=== PATIENT | male | born 1960 | race Caucasian/White ===

== ENCOUNTER 2024-08-03 18:01 | Emergency (ER) | payer MEDICAID, SELFPAY ==
[2024-08-03] VITALS (9 sets, daily range): BP systolic 117–146; BP diastolic 65–87; PULSE 40–58; RESP 12–16; TEMP 36.4–36.7; O2SAT 96–99; BMI 28.6
--- NOTE | 2024-08-03 | ECG_ITS ---
Test Reason : AMS Blood Pressure : */* mmHG Vent. Rate : 52 BPM Atrial Rate : 52 BPM P-R Int : 152 ms QRS Dur : 150 ms QT Int : 466 ms P-R-T Axes : 12 -43 1 degrees QTcB Int : 433 ms Sinus bradycardia Left axis deviation Right bundle branch block Minimal voltage criteria for LVH, may be normal variant ( R in aVL ) Abnormal ECG When compared with ECG of 25-Apr-2019 18:16, Vent. rate has decreased by 26 bpm Right bundle branch block is now Present Referred By: Generic ED Physician Electronically Signed By: CONSUELO LAURENT
--- NOTE | ~2024-08-03 | CT_ITS ---
CLINICAL HISTORY: mental status changes CT head without contrast Comparison: CT/REG/NY/SR - BRAIN WO IV CONTRAST [id number] - 04/25/19 18:36 EST Findings: There are bilateral subdural fluid collections overlying the cerebral convexities, measuring 9 mm maximum thickness on the left and 4 mm maximum thickness on the right. Both collections are of intermediate density, oglqi-mxwqbya-gjkw-left of CSF but less than that of the intravascular blood pool. There are few small areas of slightly increased density within the left cerebral convexity subdural collection anteriorly which could represent recent rebleeding into subdural hematomas which are chronic or subacute. There is minimal uqkj-mp-tlhqy midline shift measuring 4 mm along with mild effacement of the left lateral ventricle and generalized cerebral hemispheric sulcal effacement. No significant uncal herniation or tonsillar herniation. No periventricular edema or findings of ventricular entrapment. No significant orbital abnormality. Paranasal sinuses and mastoid air cells clear. IMPRESSION: 1. Bilateral cerebral convexity subdural hematomas which appear to be acute on chronic. Esjy-sa-vecploro associated mass effect. Neurosurgical consultation recommended. This document has been electronically signed by: Dariusz Bruce MD on 08/03/2024 19:26:05
[2024-08-03 18:42] LABS: MANUAL DIFF FLAG NO
[2024-08-03 18:44] LABS: Basophils Percent Auto 0.1 % (0-2); Eosinophils Percent Auto 0.4 % (0-4); Hematocrit 37.6 % (42.0-52.0); Hemoglobin 12.8 g/dl (14.0-18.0); Imm Gran Abs Auto 0.03 X10*3/uL (0.00-0.03); Imm Gran Pct Auto 0.3 % (0.0-0.4); Lymphocytes Absolute Auto 1.1 X10*3/uL (1.2-4.9); Lymphocytes Percent Auto 11.5 % (20-40); Mean Corpuscular Volume 88.1 fL (80.0-98.0); Mean Platelet Volume 9.3 fL (9.4-12.4); Monocytes Absolute Auto 0.3 X10*3/uL (0.1-1.2); Monocytes Percent Auto 3.5 % (2-11); Neutrophils Absolute Auto 7.7 x10*3/uL (2.0-8.3); Neutrophils Percent Auto 84.2 % (45-73); Platelet Count 277 X10*3/uL (160-400); Red Blood Count 4.27 X10*6/uL (4.60-5.80); Red Cell Distribution Width 12.5 % (11.0-16.0); White Blood Count 9.1 X10*3/uL (4.8-10.8)
--- NOTE | 2024-08-03 18:44 | ED_ITS ---
HPI - General Adult General Chief complaint: General Medical Stated complaint: AMS Time Seen by Provider: 08/03/24 18:17 Source: patient and EMS Mode of arrival: EMS Limitations: no limitations History of Present Illness ED Provider: DR. Jose HPI narrative: 64-year-old male brought in by ambulance for further evaluation of neighbor's concern of the patient is acting weird. Patient stated that he [facility] patient was feeling slightly depressed and he sniffed 1 bag of heroin got it from his friend, patient, patient fell yesterday do not remember details of the fall, possible head injury, no fever, no chills, complaining of slight headache otherwise he feels fine. Patient received Narcan by EMS and the patient became more awake. Related Data Allergies Allergy/AdvReac Type Severity Reaction Status Date / Time No Known Allergies Allergy Verified 08/03/24 18:15 [No Known Allergies*] Review of Systems 2 Review of Systems: All other systems are reviewed and are negative Constitutional: Reports as per HPI and Reports no additional constitutional complaints Eyes: Reports as per HPI and Reports no additional eye complaints Reports system reviewed and no additional complaints, except as documented Cardiovascular: Reports as per HPI and Reports no additional cardiovascular complaints Respiratory: Reports as per HPI and Reports no additional respiratory complaints Gastrointestinal: Reports as per HPI and Reports no additional gastrointestinal complaints Genitourinary: Reports no additional female genitourinary complaints Musculoskeletal: Reports no additional musculoskeletal complaints Skin/Breast: Reports system reviewed and no additional complaints, except as docu Psychiatric: Reports no additional psychiatric complaints Endocrine: Reports no additional endocrine complaints Hematologic/Lymphatic: Reports no additional hematologic/lymphatic complaints Allergic/Immunologic: Reports no additional allergic/immunologic complaints Reports system reviewed and no additional complaints, except as documented and Reports Abnormal speech present [facility] Social History Social History Advance Directives: No Advance Directives Information Provided: No Physical Exam ED Vital Signs: Vital Signs - 24 hr 08/03/24 18:14 08/03/24 18:29 08/03/24 18:44 Temperature 98.0 F Pulse Rate 47 L 51 52 Respiratory Rate 16 14 12 Blood Pressure 146/83 H 117/65 120/80 Pulse Oximetry 96 97 97 Oxygen Delivery Method Room Air Room Air Room Air 08/03/24 19:42 Temperature Pulse Rate 46 L Respiratory Rate 13 Blood Pressure 130/85 Pulse Oximetry 98 Oxygen Delivery Method Room Air BMI result Body Mass Index 28.6 Vital signs have been reviewed and appear to be correct. Blood pressure elevated. Heart rate normal. Respiratory rate normal. Temperature normal. Oxygen saturation normal. Appearance: Sluggish, lethargic, Oriented X3 No acute distress. Head: Normal external exam. Normocephalic. Atraumatic. No Elkins signs noted. No raccoon eyes noted Eyes: PERRLA. EOMI. Conjunctiva and sclera normal. Eyelids normal. ENT: TM's Normal. Pharynx normal. Uvula midline. Moist mucous membranes. No trismus noted. No drooling noted. No muffled voice noted. Neck: Normal inspection. Neck supple. FROM. No adenopathy. Thyroid Normal. No meningeal signs. No neck mass noted. CVS: Normal heart rate and rhythm. Heart sound normal. No murmurs noted. Pulses normal throughout. Respiratory: No respiratory distress. Painless inspiration. Breath sounds normal. No wheezes/rales/rhonchi noted. Chest nontender. No accessory muscle usage noted or decreased air movement noted. Abdomen: Soft and nontender. Bowel sounds normal in all 4 quadrants. No distention noted. No organomegaly noted. No visible injury noted. Back: No CVA tenderness. Full range of motion noted. Skin: Skin warm and dry. Normal skin color. Normal skin turgor. No rashes/lesions/lacerations noted. Extremities: No lower extremity edema. Extremities exhibit normal range of motion. Extremities nontender. Neuro: Mental status: Sluggish.AAOx3, Able to protect airway with strong gag reflex. Cranial nerves: Pupils are equal, round and reactive to light, EOMI, visual morales are fall, face is symmetric, facial sensations are normal. Motor examination normal muscle tone, strength to 4 extremities. DTR are +2, planter's are flexor. Sensory exam; normal coordination, no ataxia, gait stable. Cerebellar exam: Nlnzeh-wl-vpqb and ooyc-ce-rkoz is normal. Extrapyramidal system: No tremors, no rigidity with normal facial expressions. Pronator drift not present. Course Reevaluation(s) Reevaluation #1: Change mental status after using heroin, CT head reveals acute on chronic bilateral subdural hematoma with minimal left to right shift and minimal effacement. Patient is lethargic but easily arousable follow commands. The case discussed with Dr. Montana at [facility] for trauma transfer. Patient was accepted. Ambulance ALS expected to transport the patient in 30 minutes, quick neuro exam pupil is 3 mm reactive bilaterally, patient is still lethargic but easily arousable follows simple commands, AA O x3 (time, place, person). Positive gag reflex. And able to protect airway. Signed out to Dr. Jackson. Time: 21:00 Medical Decision Making Differential Diagnosis Differential Diagnoses: The differential diagnosis associated with the presentation includes (Intracranial bleed, substance use, electrolyte derangement, severe anemia.) Admission/Observation Consideration of admission/observation: Escalation of care including admission/observation considered Consult Healthcare Provider Management of the patient was discussed with: Historiography Professor (Dr. Montana at [facility]) Lab Data MDM Lab Attestation statement: I reviewed the patient's lab results. 08/03/24 18:38 08/03/24 18:38 Labs: Lab Results 08/03/24 Range/Units 18:38 WBC 9.1 (4.8-10.8) X10*3/uL RBC 4.27 L (4.60-5.80) X10*6/uL Hgb 12.8 L (14.0-18.0) g/dl Hct 37.6 L (42.0-52.0) % MCV 88.1 (80.0-98.0) fL MCH 30.0 (27.0-33.0) pg MCHC 34.0 (31.0-36.0) g/dl RDW 12.5 (11.0-16.0) % Plt Count 277 (160-400) X10*3/uL MPV 9.3 L (9.4-12.4) fL Immature Gran % (Auto) 0.3 (0.0-0.4) % Neut % (Auto) 84.2 H (45-73) % Lymph % (Auto) 11.5 L (20-40) % [place] % (Auto) 3.5 (2-11) % Eos % (Auto) 0.4 (0-4) % Baso % (Auto) 0.1 (0-2) % Lymph # (Auto) 1.1 L (1.2-4.9) X10*3/uL [place] # (Auto) 0.3 (0.1-1.2) X10*3/uL Eos # (Auto) 0.0 (0.0-0.4) X10*3/uL Baso # (Auto) 0.0 (0.0-0.2) X10*3/uL Abs Immat Gran (auto) 0.03 (0.00-0.03) X10*3/uL Absolute Neuts (auto) 7.7 (2.0-8.3) x10*3/uL Absolute Nucleated RBC 0.000 (0.0-0.012) X10*3/uL Nucleated RBC % (auto) 0.0 (0.0-0.2) /100WBC PT 12.5 H (10.9-12.4) SEC INR 1.1 (0.9-1.1) Sodium 142 (135-145) mmol/L Potassium 4.0 (3.3-5.1) mmol/L Chloride 109 H (96-108) mmol/L Carbon Dioxide 24 (22-29) mmol/L Anion Gap 13 (12-20) BUN 22 H (9-16) mg/dL Creatinine 0.80 (0.5-1.4) mg/dL Estim Creat Clear Calc 108.6 Estimated GFR > 60 Random Glucose 128 H (60-115) mg/dL Calcium 8.9 (8.4-10.2) mg/dL Troponin I High Sens 6.4 (<3.5-35.0) ng/L Salicylates < 5.0 L (15-30) mg/dL Acetaminophen < 3 (<30) mcg/mL Ethyl Alcohol 10 mg/dL Independent Interpretation I performed an independent interpretation of an: CT Scan (Head: . Bilateral cerebral convexity subdural hematomas which appear to be acute on chronic. Wnrx-tv-kpynoaut associated mass effect. Neurosurgical consultation recommended.) Radiology Impression Discussion of test interpretation with radiology: I have reviewed the radiologist's reading. Critical Care Time Critical Care Time Critical Care Time: Yes Total Critical Care Time: 60 Attestation: The patient was critically ill with a high probability of imminent or life- threatening deterioration. I spent greater than 30 minutes of discontinuous time evaluating the patient, delivering critical care at the bedside, discussing evaluating data with consultants. Critical care time does not include time spent performing separately billable procedures or teaching. Time spent performing critical care was 60 minutes. Discharge Plan Discharge Clinical Impression: Subdural hematoma, Substance abuse Patient Disposition: [facility] Transfer Details: [facility]. Print Language: Yemeni
[2024-08-03 18:49] LABS: INTERNATIONAL NORM RATIO 1.1 (0.9-1.1); Prothrombin Time 12.5 SEC (10.9-12.4)
[2024-08-03 18:59] LABS: Anion Gap 13 (12-20); Blood Urea Nitrogen 22 mg/dL (9-16); Calcium 8.9 mg/dL (8.4-10.2); Carbon Dioxide 24 mmol/L (22-29); Chloride 109 mmol/L (96-108); Creatinine Clr Calc Pharmacy 108.6; Estimated Glomerular Filt Rate > 60; Ethanol 10 mg/dL; Glucose Random 128 mg/dL (60-115); Sodium 142 mmol/L (135-145)
[2024-08-03 19:03] LABS: Acetaminophen LAB < 3 mcg/mL (<30); Salicylate < 5.0 mg/dL (15-30)
[2024-08-03 19:08] LABS: Troponin-I High Sensitivity 6.4 ng/L (<3.5-35.0)
--- NOTE | 2024-08-03 19:47 | PC.NURSE ---
Head CT impression: Bilateral cerebral convexity subdural hematomas which appear to be acute on chronic. Xrtc-oo-jpbyysfy associated mass effect. Neurosurgical consultation recommended. Plan to transfer to [facility] per . Awaiting EMS for transfer. Will give RN to RN report upon [facility]'s acceptance. Patient is sleeping at this time, arousable to verbal stimuli. Patient stated to this RN & Dr. Jose that he fell 2 days ago . 18g IV access to left AC. Labs drawn and sent earlier this shift. Was given Narcan IV by EMS prior to arrival for OD of heroin to treat my pain after recent discharge from [facility] rehab. In hospital attire.
[2024-08-03 21:18] LABS: Glucose, Whole Blood 130 mg/dL (60-115)
== END 2024-08-03 21:19 | disposition short-term general hospital (02) ==
PROVIDERS: Emergency Medicine; Emergency Provider Emergency Medicine
DX: S06.5XAA Traumatic subdural hemorrhage with loss of consciousness status unknown, initial encounter (principal); R41.82 Altered mental status, unspecified; F11.10 Opioid abuse, uncomplicated; F33.1 Major depressive disorder, recurrent, moderate; R00.1 Bradycardia, unspecified; I45.10 Unspecified right bundle-branch block; R51.9 Headache, unspecified; W19.XXXA Unspecified fall, initial encounter; Y93.9 Activity, unspecified; Y92.9 Unspecified place or not applicable; Y99.8 Other external cause status; Z51.81 Encounter for therapeutic drug level monitoring; Z79.899 Other long term (current) drug therapy
CPT/HCPCS: 36415; 70450; 80048; 80143; 80179; 80307; 82947; 84484; 85025; 85610; 93005; 99285

== ENCOUNTER → 2024-08-03 18:17 | Outpatient (BNV) | payer MEDICAID, SELFPAY | PROVIDERS: Emergency Provider Emergency Medicine; Visit Provider Internal Medicine | DX: R00.1 Bradycardia, unspecified (principal); I45.10 Unspecified right bundle-branch block; R94.31 Abnormal electrocardiogram [ECG] [EKG]; R41.82 Altered mental status, unspecified | CPT/HCPCS: 93010 ==

== ENCOUNTER → 2024-08-03 18:43 | Outpatient (BNV) | payer MEDICAID, SELFPAY | PROVIDERS: Emergency Provider Emergency Medicine; Visit Provider Radiology Diagnostic Radiology | DX: R41.82 Altered mental status, unspecified (principal); I62.00 Nontraumatic subdural hemorrhage, unspecified | CPT/HCPCS: 70450 ==

== ENCOUNTER 2024-10-28 14:08 | Emergency (ER) | payer MEDICAID, SELFPAY ==
--- NOTE | ~2024-10-28 | CT_ITS ---
EXAMINATION: CT HEAD WITHOUT CONTRAST CLINICAL INFORMATION: Altered mental status, history of subdural hematoma. COMPARISON: 08/03/2024. TECHNIQUE: Contiguous axial imaging was performed from the skull base to vertex without intravenous administration of contrast. This CT examination was performed using dose optimization techniques as appropriate, variously including the following: *Automated exposure control *Adjustment of mA and/or kV according to patient size (this includes techniques or standardized protocols for targeted exams where dose is matched to indication/reason for exam; i.e. extremities or head) *Use of iterative reconstruction technique FINDINGS: Left frontoparietal isoattenuating subdural hematoma, measuring approximately 1.2 cm in maximal thickness. There are small foci of hyperattenuation along the anterior margin suggestive of active bleeding. There is localized left hemispheric mass effect and sulcal effacement, and a resultant 4 mm of [id number] midline shift. No ventricular trapping at this time. Mild effacement of the left lateral ventricle is present. No impending uncal or transtentorial herniation. No intraparenchymal or subarachnoid hemorrhage. There is embolization material within the left middle meningeal artery territory. There is associated streak artifact. Embolic material also noted in the right pterygopalatine fossa. The globes and orbits appear normal. Extracranial soft tissues are normal. The paranasal sinuses, mastoids, and tympanic cavities are aerated normally. There is no fracture or focal bony lesion. CT/CT head/brain wo IV con IMPRESSION: 1. Subacute appearing predominantly isoattenuating subdural hematoma in the left frontoparietal convexity measuring approximately 1.2 cm in maximal thickness (when measured in coronal plane). There is resultant left hemispheric mass effect, sulcal effacement, and 4 mm of [id number] midline shift. 2. There is mild mass effect upon the left lateral ventricle without ventricular trapping. There is no impending uncal or transtentorial herniation. 3. There is no intraparenchymal or subarachnoid hemorrhage present. There is no acute territorial infarct. 4. There is embolization material within the left middle meningeal artery territory. This critical result was discussed with Stella Ramirez PA-C of the [facility] at 4:19 PM, 10/28/2024.. It was ascertained that the content and urgency of the report was understood at the time of direct communication. Electronically signed by: Gregorio Rodriguez MD 10/28/2024 04:20 PM EDT RP
[2024-10-28 14:38] VITALS: BP 106/60; BP 82/49; PULSE 110; PULSE 89; RESP 16; TEMP 36.7; O2SAT 94; O2SAT 95; BMI 30.3
[2024-10-28 14:42] VITALS: BP 82/49; PULSE 89; RESP 16; TEMP 36.7; O2SAT 94
--- NOTE | 2024-10-28 14:44 | PC.NURSE ---
Addendum entered by Stella Maguire RN 10/28/24 14:59: Pt denies SI/HI at this time. Original Note: Pt comes to ED today via EMS after being found by PD at a gas station with bizarre behavior: punching the air, walking into traffic, and verbal outbursts. Per EMS, Pt reports snorting heroin but unable to provide details of when/amount. Pt denies any ETOH or drug use to this RN at this time. Pt changed into hospital attire by Security and senior research engineer Jodie--Pt cooperative with global climate change analyst process. Pt is alert and responds to internal stimuli. Pt can be frequently be seen talking out loud and addressing a female that he believes to be there. He also repeatedly is startled and states yes, sir Pt is intermittently falls asleep but is easily aroused with verbal stimuli. Awaiting ED provider.
--- OUTSIDE RECORDS SUMMARY | 2024-10-28 15:21 | XMS_ITS | Clinical Summary ---
Author Organization [facility] [address] Address [address] [place] [address] Care Team Providers Care Concrete Mixer Name Role Phone Unavailable Primary Care Provider Unavailabl e Medications SUBOXONE 8-2 mg per sublingual film PLACE 1 FILM UNDER TONGUE THREE TIMES A DAY 12/19/2021 Active Social History Tobacco Use Types Packs/Day Years Used Date Smoking Tobacco: Never Assessed Sex and Gender Information Value Date Recorded Sex Assigned at Not on file Legal Sex Male 10:06 PM EST Gender Identity Not on file Sexual Orientation Not on file Last Filed Vital Signs Vital Sign Reading Time Taken Comments Blood Pressure 138/100 01/15/2022 3:29 PM EDT Pulse 67 01/15/2022 3:29 PM EDT Temperature 36.1 ??C (96.9 ??F) 01/15/2022 3:29 PM ED T Respiratory Rate - - Oxygen Saturation 98% 01/15/2022 3:29 PM EDT Inhaled Oxygen Concentration - - Weight 110 kg (242 lb 6.4 oz) 01/15/2022 3:29 PM EDT Height - - Body Mass Index - - Plan of Treatment Health Maintenance Due Date Last Done Comments HIV screening 1973 Hepatitis C screening 1978 Lipid disorder screening 2000 Colon cancer screening, Colonoscopy 2005 Diabetes screening 2005 Pneumococcal Vaccine (50+ ye ars) (1 of 1 - PCV) 2010 Shingles vaccine (Shingrix) (1 of 2 - Shingrix (RZV) 2 Dose Standard Series) 2010 Tetanus adult (Td q 10,TDAP once) 06/30/2020 011 Covid-19 vaccine series ( - 2023- season) 2024 Influenza vaccine 02/08/2025 RSV Immunization (1 - 1-dose 75+ series) 2035 Meningococcal Vaccine Aged Out No calderon ujlio eligible based on patient's age to complete this topic
--- NOTE | 2024-10-28 15:30 | ED_ITS ---
HPI - Altered Mental Status General Chief Complaint: ETOH/Substance Use Stated Complaint: AMS,ERRATIC BEHAVIOR BY ROAD,ADMITS TO HEROIN Time Seen by Provider: 10/28/24 15:30 Source: patient, EMS, RN notes reviewed and old records reviewed Mode of arrival: EMS Limitations: altered mental status History of Present Illness ED Provider: Smith Ramirez PA-C HPI narrative: 64 yo male with history of substance use, history of subdural hematama who presents to the ER for evaluation after he was found outside of a gas station with bizarre behavior. EMS reports he was found punching the air, walking into traffic and having verbal outbursts. Patient admitted to using intranasal heroin but was unable to report when or how much. On arrival to the ER patient is awake and alert. He does not know why he is here. He states he has lived in a hotel for the last 5 years. He endorses using heroin, denies any alcohol or other illicit substances. He denies any pain, specifically no headache, chest pain, abdominal pain, shortness of breath. He was found to be hypotensive 82/49 with no fever, no tachycardia. This was repeated multiple times and found to be persistent. Patient denies any dizziness, lightheadedness. He denies any fever or chills. He adamantly denies intravenous drug use. MD complaint: altered mental status Onset (ago): unknown Consistency of symptoms: waxing and waning Context: drug abuse Associated symptoms: denies other symptoms Related Data Allergies Allergy/AdvReac Type Severity Reaction Status Date / Time No Known Allergies Allergy Verified 10/28/24 14:41 [No Known Allergies*] Review of Systems 2 Review of Systems: Yes all other systems are reviewed and are negative [facility] Social History Social History Unable to assess alcohol history related to: Unable to respond Substance Use Type: Heroin Physical Exam ED Vital Signs: Vital Signs - 24 hr 10/28/24 14:42 10/28/24 15:45 10/28/24 15:52 Temperature 98.0 F Pulse Rate 89 70 69 Respiratory Rate 16 12 Blood Pressure 82/49 L 85/44 L 91/53 L Pulse Oximetry 94 94 Oxygen Delivery Method Room Air Room Air 10/28/24 16:22 10/28/24 18:03 Temperature 98.0 F 98.3 F Pulse Rate 64 74 Respiratory Rate 12 18 Blood Pressure 100/59 L 104/63 Pulse Oximetry 97 95 Oxygen Delivery Method Room Air Room Air BMI result Body Mass Index 30.3 Appearance: Alert. Oriented X3. No acute distress. Intermittently falling asleep Head: normocephalic, atraumatic. no scrapes or abrasions on the forehead Eyes: Pupils 2 mm, equal round and reactive to light. ENT: Pharynx normal. No tonsillar swelling or exudate. Neck: Normal inspection. Neck supple. no midline tenderness, normal ROM CVS: Normal heart rate and rhythm. Pulses normal. Respiratory: No respiratory distress. Breath sounds normal. Abdomen: Soft and nontender. +BS x4 Skin: Skin warm and dry. Normal skin color. Normal skin turgor. No rashes. Extremities: No lower extremity edema. No joint swelling. Neuro/psych: Oriented X 3. No motor deficit. No sensory deficit. Restless CN II-XII intact. Normal speech and cognition. GCS 15, poor historian Medications Administered Discontinued Medications Generic Name Dose Route Start Last Admin Trade Name Joshuaq PRN Reason Stop Dose Admin Lactated Ringer's 1,000 mls @ 999 mls/hr 10/28/24 15:45 10/28/24 17:00 Lr IV 10/28/24 16:45 Infused .Q1H1M JAIRO Infusion Lactated Ringer's 1,000 mls @ 999 mls/hr 10/28/24 17:30 10/28/24 18:03 Lr IV 10/28/24 18:30 Not Given .Q1H1M JAIRO Medical Decision Making Medical Decision Making MDM Narrative: 64 yo male with history of substance abuse, history of bilateral subdural hematomas when seen here last in July and was transferred to [facility] who presents to the ER via EMS for evaluation of bizarre behavior for using drugs, found to be hypotensive. he is a poor historian, no recollection of the bizarre behavior or events that occurred earlier today. He denies any falls or trauma. Patient hypotensive 80/40, slightly lethargic but arouses and answers questions appropriately. Vital signs are otherwise stable. IV was established he was started on IV fluids. Lab workup is showing stable normocytic anemia with hemoglobin of 11.7. Blood pressure improved to 91/[address] scan of his head was done which is showing a new subdural hematoma in the left frontoparietal area measuring 1.2 cm with a resulting 4 mm wgsx-aa-njqsv shift. Patient is a GCS of 15 and is protecting his airway, nonfocal neurologically. He is a poor historian, intermittently lethargic which may be due to his prior drug use. We discussed the results of his CT scan and he denies any recent falls or trauma. [facility] called at 16:25 to discuss with Neurosurgery/trauma. 16:40 - spoke with Dr. Hopkins from [facility]. accepted as a trauma consult. Patient updated on results and need for transfer to [facility] Differential Diagnosis Differential Diagnoses: The differential diagnosis associated with the presentation includes Hypotension and altered mental status due to drug use, acute on chronic subdural, infection and sepsis less likely with no evidence of infection on examination Admission/Observation Consideration of admission/observation: Escalation of care including admission/observation considered Consult Healthcare Provider Management of the patient was discussed with: Sfdc Developer Lab Data MDM Lab Attestation statement: I reviewed the patient's lab results. Mild anemia 10/28/24 15:47 10/28/24 15:47 Labs: Lab Results 10/28/24 10/28/24 Range/Units 15:47 16:56 WBC 8.4 (4.8-10.8) X10*3/uL RBC 3.87 L (4.60-5.80) X10*6/uL Hgb 11.7 L (14.0-18.0) g/dl Hct 34.7 L (42.0-52.0) % MCV 89.7 (80.0-98.0) fL MCH 30.2 (27.0-33.0) pg MCHC 33.7 (31.0-36.0) g/dl RDW 12.4 (11.0-16.0) % Plt Count 252 (160-400) X10*3/uL MPV 9.3 L (9.4-12.4) fL Immature Gran % (Auto) 0.4 (0.0-0.4) % Neut % (Auto) 80.4 H (45-73) % Lymph % (Auto) 13.0 L (20-40) % [place] % (Auto) 5.0 (2-11) % Eos % (Auto) 1.1 (0-4) % Baso % (Auto) 0.1 (0-2) % Lymph # (Auto) 1.1 L (1.2-4.9) X10*3/uL [place] # (Auto) 0.4 (0.1-1.2) X10*3/uL Eos # (Auto) 0.1 (0.0-0.4) X10*3/uL Baso # (Auto) 0.0 (0.0-0.2) X10*3/uL Abs Immat Gran (auto) 0.03 (0.00-0.03) X10*3/uL Absolute Neuts (auto) 6.7 (2.0-8.3) x10*3/uL Absolute Nucleated RBC 0.000 (0.0-0.012) X10*3/uL Nucleated RBC % (auto) 0.0 (0.0-0.2) /100WBC Sodium 142 (135-145) mmol/L Potassium 4.3 (3.3-5.1) mmol/L Chloride 111 H (96-108) mmol/L Carbon Dioxide 24 (22-29) mmol/L Anion Gap 11 L (12-20) BUN 21 H (9-16) mg/dL Creatinine 1.33 (0.5-1.4) mg/dL Estim Creat Clear Calc 59.3 Estimated GFR 54 Random Glucose 122 H (60-115) mg/dL Lactic Acid 1.1 (0.5-2.0) mmol/L Calcium 8.7 (8.4-10.2) mg/dL Magnesium 2.1 (1.6-2.6) mg/dL Total Bilirubin 0.5 (0.0-1.0) mg/dL Direct Bilirubin 0.2 (0.0-0.5) mg/dL AST 16 (5-37) U/L ALT 20 (0-40) U/L Alkaline Phosphatase 76 (39-117) U/L Total Protein 6.6 (6.5-8.0) g/dL Albumin 4.1 (3.5-5.0) g/dL Ethyl Alcohol < 10 mg/dL Influenza Type A (PCR) NEGATIVE (Negative) Influenza Type B (PCR) NEGATIVE (Negative) RSV RNA Qual (PCR) NEGATIVE (Negative) SARS-CoV-2 RNA (RT-PCR) NEGATIVE (Negative) Independent Interpretation I performed an independent interpretation of an: CT Scan Interpretation: CT scan with new blood products in the left frontoparietal area with midline shift Radiology Impression Discussion of test interpretation with radiology: I discussed test interpretation with the radiologist and I have reviewed the radiologist's reading. Radiologist Impression: CT/CT head/brain wo IV con IMPRESSION: 1. Subacute appearing predominantly isoattenuating subdural hematoma in the left frontoparietal convexity measuring approximately 1.2 cm in maximal thickness (when measured in coronal plane). There is resultant left hemispheric mass effect, sulcal effacement, and 4 mm of jssn-yb-ippix midline shift. 2. There is mild mass effect upon the left lateral ventricle without ventricular trapping. There is no impending uncal or transtentorial herniation. 3. There is no intraparenchymal or subarachnoid hemorrhage present. There is no acute territorial infarct. 4. There is embolization material within the left middle meningeal artery territory. Independent Historian Clinical information obtained from an independent historian. History obtained from or confirmed by: EMS External Record Review External record reviewed: Outpatient record, Prior outpatient labs and Prior outpatient radiology Prescription Management I considered prescription management with: Antibiotic Chronic Conditions Patient?s care impacted by: Other (SDH, substance abuse) Social Determinants Patient?s care significantly limited by Social Determinants of Health including: Low income, Alcoholism and drug addiction in family and Problems related to primary support group Critical Care Time Critical Care Time Critical Care Time: Yes Total Critical Care Time: 56 Attestation: I have personally provided critical care time exclusive of time spent on separately billable procedures. Time includes review of lab data, radiology results, discussion with consultants, and monitoring for potential decompensation. Intervention performed as documented. Discharge Plan Discharge Clinical Impression: Acute subdural hematoma Patient Disposition: [facility] Transfer Details: [facility] Interventions: Acute Care Transfer Worksheet (ED) Last Done: 10/28/24 18:03 Discharge Date/Time: 10/28/24 18:05 Print Language: German
[2024-10-28 15:45] VITALS: BP 85/44; PULSE 70
[2024-10-28] MEDS: Lactated Ringers 1,000 ML 999 ML IV (15:50)
[2024-10-28 15:51] LABS: MANUAL DIFF FLAG NO
[2024-10-28 15:52] VITALS: BP 91/53; PULSE 69; RESP 12; O2SAT 94
[2024-10-28 15:52] LABS: Basophils Percent Auto 0.1 % (0-2); Eosinophils Absolute Auto 0.1 X10*3/uL (0.0-0.4); Eosinophils Percent Auto 1.1 % (0-4); Hematocrit 34.7 % (42.0-52.0); Hemoglobin 11.7 g/dl (14.0-18.0); Imm Gran Abs Auto 0.03 X10*3/uL (0.00-0.03); Imm Gran Pct Auto 0.4 % (0.0-0.4); Lymphocytes Absolute Auto 1.1 X10*3/uL (1.2-4.9); Mean Corpuscular HGB Conc 33.7 g/dl (31.0-36.0); Mean Corpuscular Hemoglobin 30.2 pg (27.0-33.0); Mean Corpuscular Volume 89.7 fL (80.0-98.0); Mean Platelet Volume 9.3 fL (9.4-12.4); Monocytes Absolute Auto 0.4 X10*3/uL (0.1-1.2); Neutrophils Absolute Auto 6.7 x10*3/uL (2.0-8.3); Neutrophils Percent Auto 80.4 % (45-73); Platelet Count 252 X10*3/uL (160-400); Red Blood Count 3.87 X10*6/uL (4.60-5.80); Red Cell Distribution Width 12.4 % (11.0-16.0); White Blood Count 8.4 X10*3/uL (4.8-10.8)
[2024-10-28 16:13] LABS: Lactic Acid 1.1 mmol/L (0.5-2.0)
[2024-10-28 16:22] VITALS: BP 100/59; PULSE 64; RESP 12; TEMP 36.7; O2SAT 97
[2024-10-28 16:46] LABS: Alanine Aminotransferase 20 U/L (0-40); Albumin Level 4.1 g/dL (3.5-5.0); Anion Gap 11 (12-20); Aspartate Amino Transferase 16 U/L (5-37); Bilirubin Direct 0.2 mg/dL (0.0-0.5); Bilirubin Total 0.5 mg/dL (0.0-1.0); Blood Urea Nitrogen 21 mg/dL (9-16); Calcium 8.7 mg/dL (8.4-10.2); Carbon Dioxide 24 mmol/L (22-29); Chloride 111 mmol/L (96-108); Creatinine Clr Calc Pharmacy 59.3; Estimated Glomerular Filt Rate 54; Ethanol < 10 mg/dL; Glucose Random 122 mg/dL (60-115); Magnesium 2.1 mg/dL (1.6-2.6); Potassium 4.3 mmol/L (3.3-5.1); Sodium 142 mmol/L (135-145); Total Protein 6.6 g/dL (6.5-8.0)
[2024-10-28 17:03] LABS: Alkaline Phosphatase 76 U/L (39-117)
--- NOTE | 2024-10-28 17:59 | PC.NURSE ---
Call placed to [facility] to RN to RN as Pt will be transferred for a trauma consult. Spoke with PEDRO Teixeira. Report given and Lluvia has no questions at this time. Fernanda CHANEY arrives to transfer Pt. RN report given to paramedics. Care of Pt relinquished to [facility].
[2024-10-28 18:03] VITALS: BP 104/63; PULSE 74; RESP 18; TEMP 36.8; O2SAT 95
[2024-10-28 19:14] LABS: Influenza A PCR NEGATIVE (Negative); Influenza B PCR NEGATIVE (Negative); Resp Syncy Virus RNA Qual PCR NEGATIVE (Negative); SARS COV2 PCR INHOUSE NEGATIVE (Negative)
== END 2024-10-28 18:05 | disposition short-term general hospital (02) ==
PROVIDERS: Physician Assistant; Emergency Provider Emergency Medicine
DX: S06.5XAA Traumatic subdural hemorrhage with loss of consciousness status unknown, initial encounter (principal); R41.82 Altered mental status, unspecified; I95.9 Hypotension, unspecified; R11.2 Nausea with vomiting, unspecified; R51.9 Headache, unspecified; F11.10 Opioid abuse, uncomplicated; R45.6 Violent behavior; X58.XXXA Exposure to other specified factors, initial encounter; Y93.9 Activity, unspecified; Y92.9 Unspecified place or not applicable; Y99.8 Other external cause status; Z51.81 Encounter for therapeutic drug level monitoring; Z03.818 Encounter for observation for suspected exposure to other biological agents ruled out; Z79.899 Other long term (current) drug therapy
CPT/HCPCS: 0241U; 36415; 70450; 80048; 80076; 80307; 83605; 83735; 85025; 87040; 96360; 99285; J7120

== ENCOUNTER → 2024-10-28 15:31 | Outpatient (BNV) | payer MEDICAID, SELFPAY | PROVIDERS: Emergency Provider Emergency Medicine; Visit Provider Radiology Diagnostic Radiology | DX: S06.5X0D Traumatic subdural hemorrhage without loss of consciousness, subsequent encounter (principal) | CPT/HCPCS: 70450 ==

== ENCOUNTER 2024-10-30 20:00 | Emergency (ER) | payer MEDICAID, SELFPAY ==
--- NOTE | ~2024-10-30 | XR_ITS ---
CLINICAL HISTORY: sob 1 view chest x-ray Comparison: None Findings: The lungs are clear. Normal size heart. No acute fracture. IMPRESSION: 1. No acute findings. This document has been electronically signed by: Dariusz Bruce MD on 10/30/2024 22:06:40
--- NOTE | ~2024-10-30 | XR_ITS ---
CLINICAL HISTORY: knee pain 2 view right knee Comparison: None Findings: Bones intact. No dislocations. No significant arthritic change or erosions. No joint effusion. No radiopaque foreign body. IMPRESSION: 1. No acute findings. This document has been electronically signed by: Dariusz Bruce MD on 10/30/2024 22:06:31
--- NOTE | ~2024-10-30 | CT_ITS ---
CLINICAL HISTORY: Vomiting blood CT abdomen and pelvis without contrast Comparison: None Findings: Lung bases clear. No free fluid or free air. Normal stomach, small bowel, appendix, and colon. Normal gallbladder, bile ducts, liver, pancreas, spleen, and adrenal glands. No significant abnormality of the kidneys, ureters, or urinary bladder. Nonobstructing 8 mm calculus in the lower pole right kidney. No aortic aneurysm. No significant bone abnormality. IMPRESSION: No acute findings. This document has been electronically signed by: Dariusz Bruce MD on 10/30/2024 22:11:28
--- NOTE | ~2024-10-30 | CT_ITS ---
CLINICAL HISTORY: Unresponsive history of subdural hematoma CT cervical spine without contrast Comparison: None Findings: No cervical spine fracture or malalignment. No suspicious lytic or blastic bone lesion. Regional soft tissues normal. Lung apices clear. IMPRESSION: No acute findings. This document has been electronically signed by: Dariusz Bruce MD on 10/30/2024 22:10:30
--- NOTE | ~2024-10-30 | CT_ITS ---
CLINICAL HISTORY: History of subdural hematoma patient left [facility] --- Additional Notes or Special Instructions: Came back to [facility] because he was found CT head without contrast Comparison: CT/HI/SR - CT HEAD/BRAIN WO IV CON - 10/28/24 15:59 EDT Findings: Known left subdural hematoma has slightly increased in size and there are new foci of increased attenuation consistent with recent rebleeding. Associated mass effect is slightly increased. Midline shift is stable. Third ventricle is moderately efface similar to the previous exam. Minimal dilatation of the left lateral ventricular temporal horn is stable. Mild left uncal herniation is similar. Templeton-white matter differentiation is maintained. IMPRESSION: 1. Known left cerebral convexity subdural hematoma is slightly increased in size with new foci of increased attenuation consistent with recent rebleeding since 10/28/2024 exam. Mild mass effect is slightly increased. No evidence of ventricular entrapment. This document has been electronically signed by: Dariusz Bruce MD on 10/30/2024 22:10:04
[2024-10-30 20:10] VITALS: BP 156/66; BP 170/82; PULSE 101; PULSE 91; RESP 16; TEMP 37.7; O2SAT 96; O2SAT 99; BMI 26.6
--- NOTE | 2024-10-30 20:24 | ECG_ITS ---
Test Reason : OVERDOSE Blood Pressure : */* mmHG Vent. Rate : 75 BPM Atrial Rate : 75 BPM P-R Int : 146 ms QRS Dur : 126 ms QT Int : 390 ms P-R-T Axes : 13 -47 5 degrees QTcB Int : 435 ms Normal sinus rhythm Right bundle branch block Left anterior fascicular block Bifascicular block Abnormal ECG When compared with ECG of 03-Aug-2024 18:17, QRS duration has decreased Referred By: Lilia Muñoz Electronically Signed By: Andrey Manzano
--- NOTE | 2024-10-30 20:37 | PC.NURSE ---
Pt found unresponsive by [employer]. Narcan administered by the police with positive effect. Pt then began vomiting. Pt alert and awake. Arrived via EMS actively vomiting dark red/purple emesis and shivering stating he was cold. Oral temp 99.8F. 18G placed on the R AC. Labs obtained and sent. VSS. Vomiting subsided after a few minutes. material mover conducted by security and this data analyst report writer. Warm blanket provided. Heroin was found in pts belongings. Pt reports using Heroin intranasal prior to arrival. Denies SI/HI. Monitoring is ongoing.
[2024-10-30 20:40] LABS: MANUAL DIFF FLAG NO
[2024-10-30 20:45] LABS: Basophils Percent Auto 0.3 % (0-2); Eosinophils Absolute Auto 0.3 X10*3/uL (0.0-0.4); Eosinophils Percent Auto 2.3 % (0-4); Hematocrit 35.7 % (42.0-52.0); Hemoglobin 11.9 g/dl (14.0-18.0); Imm Gran Abs Auto 0.06 X10*3/uL (0.00-0.03); Imm Gran Pct Auto 0.5 % (0.0-0.4); Lymphocytes Absolute Auto 2.3 X10*3/uL (1.2-4.9); Lymphocytes Percent Auto 19.5 % (20-40); Mean Corpuscular HGB Conc 33.3 g/dl (31.0-36.0); Mean Corpuscular Hemoglobin 29.8 pg (27.0-33.0); Mean Corpuscular Volume 89.5 fL (80.0-98.0); Mean Platelet Volume 9.5 fL (9.4-12.4); Monocytes Absolute Auto 0.8 X10*3/uL (0.1-1.2); Monocytes Percent Auto 6.8 % (2-11); Neutrophils Absolute Auto 8.2 x10*3/uL (2.0-8.3); Neutrophils Percent Auto 70.6 % (45-73); Platelet Count 315 X10*3/uL (160-400); Red Blood Count 3.99 X10*6/uL (4.60-5.80); Red Cell Distribution Width 12.4 % (11.0-16.0); White Blood Count 11.6 X10*3/uL (4.8-10.8)
--- NOTE | 2024-10-30 20:47 | ED.OVERDOSE ---
HPI - Overdose General Chief Complaint: Overdose Stated Complaint: possible drug intake Time Seen by Provider: 10/30/24 20:16 History of Present Illness HPI Narrative: Patient is a 64-year-old male with a history of polysubstance abuse. History of heroin abuse. Patient had a history of subdural bleed 2 days ago. Was sent to [facility]. At [facility] patient has signed out against medical advice. After getting an intervention through his groin. Patient was found unresponsive not breathing. Narcan was given. Patient then subsequently woke up. No fever no chills. Patient has started vomiting. Was noted to be vomiting blood. Sent in for further evaluation. Denies any abdominal pain. Related Data Allergies Allergy/AdvReac Type Severity Reaction Status Date / Time No Known Allergies Allergy Verified 10/30/24 20:14 [No Known Allergies*] Review of Systems Review of Systems: Positive nausea vomiting Yes all other systems are reviewed and are negative [facility] Past Medical History [facility] Narrative: History of polysubstance abuse History of subdural hematoma Social History Social History Unable to assess alcohol history related to: Unable to respond Smoked in Last 30 Days: Yes Use of substances other than those prescribed or required for medical reasons: Yes Substance Use Type: Heroin Substance Use Frequency: Chronic Longstanding Substance Use Frequency Other:: Daily Last Used Substance: Just Prior to Admission Advance Directives: No Advance Directives Information Provided: No Do you have a plan to hurt others: No Plan Physical Exam Vital Signs: Vital Signs: Last Vital Signs Temp 99.8 F 10/30/24 20:10 Pulse 91 10/30/24 20:10 Resp 16 10/30/24 20:10 BP 156/66 H 10/30/24 20:10 Pulse Ox 99 10/30/24 20:10 O2 Del Method Room Air 10/30/24 20:10 BMI result Body Mass Index 26.6 Appearance: Alert. Oriented X3. No acute distress. Eyes: Pupils equal, round and reactive to light. ENT: Pharynx normal. Neck: Normal inspection. Neck supple. No lymph nodes noted. No crepitus CVS: Normal heart rate and rhythm. Pulses normal. Normal S1 and S2 Respiratory: No respiratory distress. Breath sounds normal. No Wheezing. No rales Abdomen: Soft and nontender. No rigidity. No distention. good BS x4 Rectal exam was heme negative brown stool Skin: Skin warm and dry. Normal skin color. Normal skin turgor. Extremities: No lower extremity edema. Neurovascular intact to all extremities. No Lacerations. No Rash Neuro: Oriented X 3. No motor deficit. No sensory deficit. Moving all extermities. No slurred speech Medications Administered Discontinued Medications Generic Name Dose Route Start Last Admin Trade Name Joshuaq PRN Reason Stop Dose Admin Hydromorphone HCl 0.5 mg 10/30/24 22:40 10/30/24 22:47 Hydromorphone Hcl 0.5 Mg/0.5 Ml Syringe IVPUSH 10/30/24 22:41 0.5 mg ONCE ONE Administration Protocol Levetiracetam 1,000 mg in 100 mls @ 400 mls/hr 10/30/24 21:51 10/30/24 23:35 Keppra IV 10/30/24 22:05 Infused ONCE ONE Infusion Ondansetron HCl 4 mg 10/30/24 20:49 10/30/24 21:07 Ondansetron Hcl 4 Mg/2 Ml Vial IVPUSH 10/30/24 20:50 Not Given ONCE ONE Ondansetron HCl 4 mg 10/30/24 21:51 10/30/24 22:34 Ondansetron Hcl 4 Mg/2 Ml Vial IVPUSH 10/30/24 21:52 Not Given ONCE ONE Pantoprazole Sodium 80 mg 10/30/24 22:07 10/30/24 22:34 Pantoprazole Sodium 40 Mg/10 Ml Vial IVPUSH 10/30/24 22:08 80 mg ONCE ONE Administration Medical Decision Making Medical Decision Making MDM Narrative: Patient 64 years old has a history of subdural hematoma. Patient was transferred to [facility] 2 days prior. Had a left-sided subdural at that time. Patient has signed out against medical advice from [facility]. Came back to [place]. Elected to use narcotics. He admits to sniffing heroin. Subsequently became unresponsive. EMS arrived. Police gave patient Narcan. Patient was sent to the ED for further evaluation on the way to the ED patient's started vomiting was noted to have blood was sent in for further evaluation. Because the CT scan of the head showed significant subdural hematoma with a possible acute component. Went ahead and started patient on Keppra. Head of bed 30 degrees. Patient's repeat exam showed he is awake alert oriented moving all extremities. [facility] contacted. Will discuss with Neurosurgery. Will require transfer for more definitive care. Patient not on blood thinners. Discussed the case with [facility] neurosurgery they did not feel patient should be transferred to them. Spoke with the resident on-call for Dr. Nabor Stokes. Because of this subdural bleed with worsening bleed noted tonight worsen shift. Patient's case discussed with [facility] transfer line. Patient will be transferred to Dr. Duff service. Currently in critical condition. Repeat neurological exam patient is grossly intact. Moving all extremity. Patient complaining of right knee pain. I did an x-ray of the right knee my interpretation of the x-ray right knee was grossly negative for fracture. Can not rule out the possibility of internal derangement of the knee. Distal pulses intact. Patient denies any history of IV drug use. He only sniffs the heroin. Risk and benefits of transfer explained to patient. Patient accepted transfer to [facility]. Patient also had vomited up blood x1. I did a rectal exam. The rectal exam was heme negative. Patient's hemoglobin is 11.6. Compared to labs from 2 days ago they are essentially unchanged. We did start patient on a dose of PPI. Not on blood thinners. Will need to be monitored. CT scan of the abdomen pelvis was done. There is no evidence of bleed. There is no evidence of acute traumatic injury. Differential Diagnosis Differential Diagnoses: The differential diagnosis associated with the presentation includes History of subdural hematoma on the left side. History of polysubstance abuse. Admission/Observation Consideration of admission/observation: Escalation of care including admission/observation considered Consult Healthcare Provider Management of the patient was discussed with: Vault Teller ([facility] neurosurgery [facility] trauma) Lab Data MDM Lab Attestation statement: I reviewed the patient's lab results. 10/30/24 20:13 10/30/24 20:13 Labs: Lab Results 10/30/24 10/30/24 10/30/24 Range/Units 20:13 20:55 22:06 WBC 11.6 H (4.8-10.8) X10*3/uL RBC 3.99 L (4.60-5.80) X10*6/uL Hgb 11.9 L (14.0-18.0) g/dl Hct 35.7 L (42.0-52.0) % MCV 89.5 (80.0-98.0) fL MCH 29.8 (27.0-33.0) pg MCHC 33.3 (31.0-36.0) g/dl RDW 12.4 (11.0-16.0) % Plt Count 315 (160-400) X10*3/uL MPV 9.5 (9.4-12.4) fL Immature Gran % (Auto) 0.5 H (0.0-0.4) % Neut % (Auto) 70.6 (45-73) % Lymph % (Auto) 19.5 L (20-40) % Clinton % (Auto) 6.8 (2-11) % Eos % (Auto) 2.3 (0-4) % Baso % (Auto) 0.3 (0-2) % Lymph # (Auto) 2.3 (1.2-4.9) X10*3/uL Clinton # (Auto) 0.8 (0.1-1.2) X10*3/uL Eos # (Auto) 0.3 (0.0-0.4) X10*3/uL Baso # (Auto) 0.0 (0.0-0.2) X10*3/uL Abs Immat Gran (auto) 0.06 H (0.00-0.03) X10*3/uL Absolute Neuts (auto) 8.2 (2.0-8.3) x10*3/uL Absolute Nucleated RBC 0.000 (0.0-0.012) X10*3/uL Nucleated RBC % (auto) 0.0 (0.0-0.2) /100WBC Hold Purple Top SEE NOTE Hold Blue Top SEE NOTE Sodium 147 H (135-145) mmol/L Potassium 4.1 (3.3-5.1) mmol/L Chloride 109 H (96-108) mmol/L Carbon Dioxide 26 (22-29) mmol/L Anion Gap 16 (12-20) BUN 22 H (9-16) mg/dL Creatinine 1.12 (0.5-1.4) mg/dL Estim Creat Clear Calc 62.2 Estimated GFR > 60 Random Glucose 98 (60-115) mg/dL Calcium 9.3 D (8.4-10.2) mg/dL Total Bilirubin 0.4 (0.0-1.0) mg/dL AST 20 (5-37) U/L ALT 25 (0-40) U/L Alkaline Phosphatase 81 (39-117) U/L Total Protein 7.3 (6.5-8.0) g/dL Albumin 4.4 (3.5-5.0) g/dL Stool Occult Blood NEGATIVE (NEGATIVE) Ethyl Alcohol < 10 mg/dL Influenza Type A (PCR) (Negative) Influenza Type B (PCR) (Negative) RSV RNA Qual (PCR) (Negative) SARS-CoV-2 RNA (RT-PCR) (Negative) Blood Type O Positive Antibody Screen NEGATIVE 10/30/24 Range/Units 22:29 WBC (4.8-10.8) X10*3/uL RBC (4.60-5.80) X10*6/uL Hgb (14.0-18.0) g/dl Hct (42.0-52.0) % MCV (80.0-98.0) fL MCH (27.0-33.0) pg MCHC (31.0-36.0) g/dl RDW (11.0-16.0) % Plt Count (160-400) X10*3/uL MPV (9.4-12.4) fL Immature Gran % (Auto) (0.0-0.4) % Neut % (Auto) (45-73) % Lymph % (Auto) (20-40) % Clinton % (Auto) (2-11) % Eos % (Auto) (0-4) % Baso % (Auto) (0-2) % Lymph # (Auto) (1.2-4.9) X10*3/uL Clinton # (Auto) (0.1-1.2) X10*3/uL Eos # (Auto) (0.0-0.4) X10*3/uL Baso # (Auto) (0.0-0.2) X10*3/uL Abs Immat Gran (auto) (0.00-0.03) X10*3/uL Absolute Neuts (auto) (2.0-8.3) x10*3/uL Absolute Nucleated RBC (0.0-0.012) X10*3/uL Nucleated RBC % (auto) (0.0-0.2) /100WBC Hold Purple Top Hold Blue Top Sodium (135-145) mmol/L Potassium (3.3-5.1) mmol/L Chloride (96-108) mmol/L Carbon Dioxide (22-29) mmol/L Anion Gap (12-20) BUN (9-16) mg/dL Creatinine (0.5-1.4) mg/dL Estim Creat Clear Calc Estimated GFR Random Glucose (60-115) mg/dL Calcium (8.4-10.2) mg/dL Total Bilirubin (0.0-1.0) mg/dL AST (5-37) U/L ALT (0-40) U/L Alkaline Phosphatase (39-117) U/L Total Protein (6.5-8.0) g/dL Albumin (3.5-5.0) g/dL Stool Occult Blood (NEGATIVE) Ethyl Alcohol mg/dL Influenza Type A (PCR) NEGATIVE (Negative) Influenza Type B (PCR) NEGATIVE (Negative) RSV RNA Qual (PCR) NEGATIVE (Negative) SARS-CoV-2 RNA (RT-PCR) NEGATIVE (Negative) Blood Type Antibody Screen Independent Interpretation I performed an independent interpretation of an: EKG (Heart rate of 75 positive right bundle branch block. No acute ST segment elevation noted.) and CT Scan (CT head showed a subdural hematoma with worsening bleed acute on chronic positive mass effect positive shift) Radiology Impression Discussion of test interpretation with radiology: I have reviewed the radiologist's reading. External Record Review Previous CT record reviewed Chronic Conditions Polysubstance abuse Social Determinants Patient?s care significantly limited by Social Determinants of Health including: Alcoholism and drug addiction in family, Problems related to primary support group and Unemployment Critical Care Time Critical Care Time Critical Care Time: Yes Total Critical Care Time: 40 Attestation: I have personally provided 40 minutes of critical care time exclusive of time spent on separately billable procedures. ?Time includes review of lab data, radiology results, discussion with consultants, and monitoring for potential decompensation. ?Interventions were performed as documented above Discharge Plan Discharge Clinical Impression: Acute subdural hematoma, GI (gastrointestinal bleed) Patient Disposition: [facility] Print Language: Faroese
[2024-10-30 20:55] LABS: Alanine Aminotransferase 25 U/L (0-40); Albumin Level 4.4 g/dL (3.5-5.0); Alkaline Phosphatase 81 U/L (39-117); Anion Gap 16 (12-20); Aspartate Amino Transferase 20 U/L (5-37); Bilirubin Total 0.4 mg/dL (0.0-1.0); Blood Urea Nitrogen 22 mg/dL (9-16); Calcium 9.3 mg/dL (8.4-10.2); Carbon Dioxide 26 mmol/L (22-29); Chloride 109 mmol/L (96-108); Creatinine Clr Calc Pharmacy 62.2; Estimated Glomerular Filt Rate > 60; Ethanol < 10 mg/dL; Glucose Random 98 mg/dL (60-115); Potassium 4.1 mmol/L (3.3-5.1); Sodium 147 mmol/L (135-145); Total Protein 7.3 g/dL (6.5-8.0)
[2024-10-30 21:04] LABS: OBS Int Ctl Valid YES; OBS1 NEGATIVE (NEGATIVE)
[2024-10-30] MEDS: Pantoprazole Sodium 40 MG/10 ML VIAL 80 MG IVPUSH (22:34)
[2024-10-30] MEDS: levETIRAcetam in NaCl (iso-os) 1,000 MG/100 ML PIGGYBACK 400 MG IV (22:34)
--- NOTE | 2024-10-30 22:38 | PC.NURSE ---
pt refusing zofran. convinced pt to take keppra and protonix but initially refused all medication
[2024-10-30] MEDS: HYDROmorphone HCl 0.5 MG/0.5 ML SYRINGE IVPUSH (22:47)
[2024-10-30 23:11] LABS: Influenza A PCR NEGATIVE (Negative); Influenza B PCR NEGATIVE (Negative); Resp Syncy Virus RNA Qual PCR NEGATIVE (Negative); SARS COV2 PCR INHOUSE NEGATIVE (Negative)
[2024-10-31 00:02] VITALS: BP 106/67; PULSE 62; RESP 13; TEMP 36.9; O2SAT 96
--- NOTE | 2024-10-31 00:57 | PC.NURSE ---
Nurse to nurse report given to nurse Laughlin at [facility] as pt is in transit.
[2024-10-31 00:58] VITALS: BP 106/67; PULSE 62; RESP 13; TEMP 36.9; O2SAT 96
== END 2024-10-31 00:59 | disposition short-term general hospital (02) ==
PROVIDERS: Emergency Provider Emergency Medicine Emergency Medical Services
DX: T40.1X1A Poisoning by heroin, accidental (unintentional), initial encounter (principal); R40.4 Transient alteration of awareness; Y92.89 Other specified places as the place of occurrence of the external cause; K92.0 Hematemesis; I45.10 Unspecified right bundle-branch block; M25.561 Pain in right knee; R94.31 Abnormal electrocardiogram [ECG] [EKG]; R10.2 Pelvic and perineal pain; R51.9 Headache, unspecified; M54.2 Cervicalgia; Z03.818 Encounter for observation for suspected exposure to other biological agents ruled out; Z79.899 Other long term (current) drug therapy
CPT/HCPCS: 0241U; 36415; 70450; 71045; 72125; 73560; 74176; 80053; 80307; 82272; 85025; 86850; 86900; 86901; 93005; 96365; 96375; 99285; J1171; J1953; J2470

== ENCOUNTER → 2024-10-30 20:24 | Outpatient (BNV) | payer MEDICAID, SELFPAY | PROVIDERS: Emergency Provider Emergency Medicine Emergency Medical Services; Visit Provider Internal Medicine Cardiovascular Disease | DX: I45.2 Bifascicular block (principal) | CPT/HCPCS: 93010 ==

== ENCOUNTER → 2024-10-30 20:45 | Outpatient (BNV) | payer MEDICAID, SELFPAY | PROVIDERS: Emergency Provider Emergency Medicine Emergency Medical Services; Visit Provider Radiology Diagnostic Radiology | DX: K92.0 Hematemesis (principal); R46.4 Slowness and poor responsiveness; S06.5X0A Traumatic subdural hemorrhage without loss of consciousness, initial encounter; R06.02 Shortness of breath; M25.561 Pain in right knee | CPT/HCPCS: 70450; 71045; 72125; 73560; 74176 ==

== ENCOUNTER 2024-11-05 15:22 | Emergency (ER) | payer OTHER, SELFPAY ==
--- NOTE | ~2024-11-05 | XR_ITS ---
EXAMINATION: XR KNEE, RIGHT CLINICAL INFORMATION: Pain COMPARISON: Right knee 10/30/2024 TECHNIQUE: Two views of the right knee. FINDINGS: There is minimal loss of medial and patellofemoral compartment joint space without any loose bodies. There is small suprapatellar joint effusion. No loose bodies, fracture or dislocation seen. There is anterior superior patellar enthesophyte XR/XR knee RT 2V IMPRESSION: Mild DJD medial and patellofemoral compartments with minimal suprapatellar joint effusion. Small to moderate anterior superior patellar enthesophyte. No major change from 10/30/2024 exam. Electronically signed by: Cain Watkins MD 11/05/2024 04:54 PM EDT
[2024-11-05 15:32] VITALS: BP 102/68; PULSE 80; RESP 14; TEMP 36.1; O2SAT 97; BMI 29.3
[2024-11-05 15:35] VITALS: BP 125/86; PULSE 86; RESP 16; O2SAT 98
--- NOTE | 2024-11-05 15:39 | ED_ITS ---
HPI - General Adult General Chief complaint: General Medical Stated complaint: found unresponsive hx head bleed, substance use Time Seen by Provider: 11/05/24 15:39 Source: patient and EMS Mode of arrival: EMS Limitations: no limitations History of Present Illness ED Provider: HPI narrative: 64-year-old male with history of head bleeds according to EMS, opiate use disorder, was found unresponsive with a bus station given 2 mg of Narcan and very quickly regained consciousness, point of care glucose was unremarkable, at the time my evaluation patient ambulatory alert and oriented denies headaches, vision changes weakness in upper or lower extremities, he initially denied drug use but then admitted to it. He states he snorts fentanyl but only occasionally but he has overdosed in the past. He states he is not interested in detox. Related Data Allergies Allergy/AdvReac Type Severity Reaction Status Date / Time No Known Allergies Allergy Verified 11/05/24 15:34 [No Known Allergies*] Review of Systems Constitutional: Constitutional: Reports as per [facility] Social History Social History Unable to assess alcohol history related to: Unable to respond Smoked in Last 30 Days: No Substance Use Type: Opiates Advance Directives: No Advance Directives Information Provided: No Physical Exam ED Vital Signs: Vital Signs - 24 hr 11/05/24 15:32 11/05/24 15:35 11/05/24 18:04 Temperature 96.9 F 98.3 F Pulse Rate 80 86 62 Respiratory Rate 14 16 12 Blood Pressure 102/68 125/86 115/58 L Pulse Oximetry 97 98 94 Oxygen Delivery Method Room Air Room Air Room Air BMI result Body Mass Index 29.3 Const Other: ? Gen: Overall well-appearing patient, no trauma to the head and neck face ? HEENT: PERRLA, EOMI, MMM, ? Neck: Supple, no LAD ? CV: RRR, no obvious murmurs appreciated ? Resp: No wheezing rales rhonchi no stridor moving air well ? Abd: Bowel sounds are present, no tenderness no rebound no rigidity ? MSK: FROM, strength 5/5 all extremities ? Skin: Warm, dry, intact, ? Neuro: Alert and oriented x3, moving upper and lower extremities symmetrically, no obvious facial asymmetry noted, ambulatory, no dysmetria Medical Decision Making Medical Decision Making MDM Narrative: 15:44 at the time of my evaluation patient is already back at his baseline he has absolutely no symptoms to suspect underlying traumatic brain injury although spontaneous subarachnoid hemorrhage I do not feel that imaging is indicated this time EMS provided the brought him in told me that patient was at [facility] with a head bleed last week, at this time patient is not exhibiting any interest in detox, I did tell him I will discharge him with Narcan kit, I will continue to observe him though initially he just wanted to leave the ED, but I explained to him that once Narcan wears out if he becomes obtunded again he may fall down and injured himself and he is going to be agreeable for monitoring during the emergency department. 17:40 patient did admit to using 2 bags of fentanyl today, he reports he was in the way to the courthouse to have a warrant for his arrest lifted because he missed a court case and he stopped by to get 2 bags of fentanyl. He was also complaining of right knee pain and x-rays reveal arthritic changes. 18:43 at this point patient is much more awake and I feel comfortable that he is able to be discharged Differential Diagnosis Differential Diagnoses: The differential diagnosis associated with the presentation includes traumatic brain injury, subarachnoid hemorrhage, overdose, syncope, Radiology Impression Discussion of test interpretation with radiology: I have reviewed the radiologist's reading. Radiologist Impression: DJD, right knee Discharge Plan Discharge Clinical Impression: Opiate overdose, Arthritis of knee, right Patient Disposition: Home, Self-Care Additional Instructions: You were found unresponsive given Narcan and responded very well, that is indicative of opiate overdose, the vital signs physical examination has been reassuring, you are going to be discharged with Narcan kit, you were not interested in detox, you have had history of head bleeds as reported to me by paramedics, if you have any headaches vision changes or any other concerns come back to the ER did not feel that you presented with any type of concern for head bleed that would necessitate further workup. Print Language: Hungarian
--- NOTE | 2024-11-05 15:43 | PC.NURSE ---
Patient is a 64-year-old male with a history of polysubstance abuse. History of heroin abuse and SDH. Patient presents after [place] and was given narcan 2 mg intranasal and was alert/oriented upon arrival to the ED. Able to ambulate in the room with a steady gait. Remains alert and oriented. Lungs clear bilat. Respirations even and non-labored. Abdomen soft, non-tender with positive bowel sounds. No LE edema. Will continue monitor.
--- OUTSIDE RECORDS SUMMARY | 2024-11-05 16:00 | XMS_ITS | Encounter Summary ---
Author Organization [facility] Address [address] [place] [address] Care Team Providers Care Cloth Roll Winder Name Role Phone [facility] Primary Care Provider Encounter Details Date Type Department Care Team (Latest Contact Info) Description 10/31/2024 Travel Social History Tobacco Use Types Packs/Day Years Used Date Smoking Tobacco: Never Smokeless Tobacco: Never [facility] Utilities Answer Date Recorded In the past 12 months has th e electric, gas, oil, or water company threatened to shut off services in your home? No 10/31/2024 AUDIT-C Answer Date Recorded Q1: How often do you have a drink containing alc ohol? 2-3 times a week 10/31/2024 Q2: How many drinks containi ng alcohol do you have on a typical day when you are drinking? 1 or 2 10/31/2024 Q3: How often do you have si x or more drinks on one occasion? Less than monthly 10/31/2024 Hunger Vital Sign Answer Date Recorded Within the past 12 months, y ou worried that your food would run out before you got the money to buy more. Never true 11/01/19 25 Within the past 12 months, t he food you bought just didn't last and you didn't have money to get more. Never true 10/31/2024 PRAPARE - Transportation Answer Date Re corded In the past 12 months, has l ack of transportation kept you from medical appointments or from getting medications? No 10/09 In the past 12 months, has l ack of transportation kept you from meetings, work, or from getting things needed for daily living? No 10/31/2024 Housing Stability Vital Sign Answer Mariano e Recorded In the last 12 months, was t here a time when you were not able to pay the mortgage or rent on time? No 10/31/2024 In the past 12 months, how m any times have you moved where you were living? 1 10/31/2024 At any time in the past 12 m [facility], were you homeless or living in a jail (including now)? No 10/31/2024 Sex and Gender Information Value Date Recorded Sex Assigned at Male 10/31/2024 3:28 AM EDT Legal Sex Male 11:13 PM EDT Gender Identity Male 10/31/2024 3:28 AM EDT Sexual Orientation Heterosexual (straight) 10/31 3:28 AM EDT documented as of this encounter Functional Status * Audit-C Score Answer Date of Assessment Author 4 10/31/2024 1:00 PM EDT Arlen Nguyen RN * Question Answer Date of Assessment Author Q1: How often do you have a drink containing alcohol? 2-3 times a week 10/31/2024 1:00 PM CHARBELT Arlen Santos RN Q2: How many drinks containing alcohol do you have on a typical day when you are drinking? 1 or 2 10/31/2024 1:00 PM EDT Arlen Santos RN Q3: How often do you have six or more drinks on one occasion? Less than monthly 10/31/2024 1:00 PM CHARBELT Arlen Santos RN documented as of this encounter Plan of Treatment Not on file documented as of this encounter Visit Diagnoses Not on filedocumented in this encounter Care Teams Cloth Roll Winder Relationship Specialty Start Date End Date [facility] [address] [place] [address] PCP - General 10/31/24 documented as of this encounter
[2024-11-05 18:04] VITALS: BP 115/58; PULSE 62; RESP 12; TEMP 36.8; O2SAT 94
[2024-11-05] MEDS: Naloxone HCl Nasal TAKE HOME 4 MG SPRAY 8 MG NOSTRILALT (18:57)
[2024-11-05 19:02] VITALS: BP 115/58; PULSE 62; RESP 12; TEMP 36.8; O2SAT 94
== END 2024-11-05 19:03 | disposition home or self-care (01) ==
PROVIDERS: Emergency Provider Emergency Medicine
DX: M17.11 Unilateral primary osteoarthritis, right knee (principal); T40.1X1A Poisoning by heroin, accidental (unintentional), initial encounter; Y92.9 Unspecified place or not applicable; R40.4 Transient alteration of awareness; F11.10 Opioid abuse, uncomplicated
CPT/HCPCS: 73560; 99284

== ENCOUNTER → 2024-11-05 16:20 | Outpatient (BNV) | payer MEDICAID, SELFPAY | PROVIDERS: Emergency Provider Emergency Medicine; Visit Provider Radiology Diagnostic Radiology | DX: M25.561 Pain in right knee (principal) | CPT/HCPCS: 73560 ==

== ENCOUNTER 2025-01-23 12:02 | Emergency (ER) | payer OTHER, SELFPAY ==
--- NOTE | ~2025-01-23 | CT_ITS ---
CLINICAL HISTORY: AMS CT head without IV contrast Comparison: CT/SR - CT HEAD/BRAIN WO IV CON - 10/30/24 21:07 EDT Findings: The ventricles are normal in configuration. Basilar cisterns intact. Mixed Iso to hypoattenuating left lateral convexity subdural hematoma measuring 7 mm in maximum thickness previously measuring 2.2 cm. No midline shift or herniation. The parenchyma is unremarkable in attenuation. [place]-white matter junction preserved. No evidence of acute large vessel or territorial ischemia. Brainstem and cerebellum unremarkable. Calvarium is intact. Minimal streak artifact from surgical hardware left lateral convexity. The imaged portion of the paranasal sinuses are clear. No mastoid effusions. The orbital contents are unremarkable. Impression: 1. The left lateral convexity Iso to hypoattenuating subdural hematoma has significantly decreased in size postsurgical changes as described causing minimal streak artifact on the left. No midline shift or herniation or evidence of infarction. This document has been electronically signed by: Mo Lindsey MD on 01/23/2025 16:21:15
[2025-01-23 12:16] VITALS: BP 107/62; BP 120/88; PULSE 84; RESP 18; TEMP 36.3; O2SAT 93; BMI 20.3
[2025-01-23 12:23] VITALS: BP 107/62; PULSE 90; RESP 18; O2SAT 94
--- NOTE | 2025-01-23 12:48 | PC.NURSE ---
PT HAD 739 IN BAZZI LOGGED INTO THE [facility] BY SECURITY AND THIS RN, PHOTO Id INCLUDED, PT CLOTHES PT IN [facility] BY SECURITY
--- NOTE | 2025-01-23 12:59 | PC.NURSE ---
SECURITY FOUND 50 BAGS OF HEROIN ON PT AND CALLED [facility]
--- NOTE | 2025-01-23 13:19 | ED.GENADULT ---
HPI - General Adult General Chief complaint: ETOH/Substance Use Stated complaint: ETOH Time Seen by Provider: 01/23/25 12:35 Source: patient and EMS Mode of arrival: EMS Limitations: altered mental status ( Appears to be under the influence of drugs) History of Present Illness ED Provider: NIA Workman HPI narrative: this is a 64-year-old male past medical history significant for substance use disorder presenting to the emergency department via ambulance where he was found at [facility] [place], he was altered with bizarre behavior, throwing hall around the parking lot. According to EMS he reported taking pills. He told the nurse that he snorted something but he was not sure what it was. He denies alcohol use. He tells me the fun was just starting . He tells me he is tired. Denies visual, auditory and tactile hallucinations. Denies medical complaints at this time. Tells me he just wants to take a nap. Related Data Allergies Allergy/AdvReac Type Severity Reaction Status Date / Time No Known Allergies (No Known Allergy Verified 01/23/25 12:22 Allergies*) Review of Systems Review of Systems: Yes all other systems are reviewed and are negative [facility] Past Medical History Attestation statement: The following information was validated with the patient. Source: old records reviewed and nursing notes reviewed Social History Social History Unable to assess alcohol history related to: Unable to respond Smoked in Last 30 Days: Yes Substance Use Type: Heroin Substance Use Frequency: Chronic Longstanding Advance Directives: No Advance Directives Information Provided: No Physical Exam ED Exam Exam: Appearance: Alert.? Oriented X3.? No acute distress.? Head: Normocephalic, atraumatic, no step-offs or deformities Eyes: Pupils equal, round and reactive to light.? ENT: Pharynx normal.? Neck: Normal inspection.? Neck supple.? CVS: Normal heart rate and rhythm.? Pulses normal.? Respiratory: No respiratory distress.? Breath sounds normal.? Abdomen: Soft and nontender.? Skin: Skin warm and dry.? Normal skin color.? Normal skin turgor.? Extremities: No lower extremity edema.? No calf ttp. 5/5 strength to bilateral upper and lower extremities Back: No midline tenderness, no C-spine tenderness, full range of motion, no CVA tenderness bilaterally Neuro: Oriented X 3.? No motor deficit.? No sensory deficit. CN 2-12 intact Vital Signs: Vital Signs - 24 hr 01/23/25 12:16 01/23/25 12:23 Temperature 97.3 F Pulse Rate 84 90 Respiratory Rate 18 18 Blood Pressure 107/62 107/62 Pulse Oximetry 93 94 Oxygen Delivery Method Room Air BMI result Body Mass Index 20.3 vital signs stable Course Reevaluation(s) Reevaluation #1: CBC with normocytic anemia. chemistry with no acute findings needing intervention. Chronically elevated BUN and creatinine educated on p.o. hydration PCP follow-up and possible referral to renal if needed. Ethanol negative. CT head pending. Patient is much more awake at this time ambulatory with steady gait normal coordination alert and oriented x4. He would like to be discharged. He is interested in outpatient detox he will go tomorrow for more information. He did speak to recovery (Fabiana) who gave him resources. As soon as the head CT results patient will be discharged home. Will send him home with Narcan. Reevaluation #2: Head CT with improving subdural hematoma no midline shift or herniation or evidence of infraction. Neurological assessment nonfocal. Cerebellar intact. Ambulatory. Patient requesting to leave. Patient will be sent home with Narcan. Time: 16:33 Medications Administered Discontinued Medications Generic Name Dose Route Start Last Admin Trade Name Lis PRN Reason Stop Dose Admin Naloxone HCl 8 mg 01/23/25 15:44 01/23/25 16:16 Naloxone Hcl Nasal Take Home 4 Mg [place] NOSTRILALT 01/23/25 15:45 8 mg ONCE ONE Administration Medical Decision Making Medical Decision Making [facility] Narrative: 64-year-old male presents with bizarre behavior from racing marked. Poor historian. Appears to be under the influence of drugs. Patient was found with a large amount of money and paraphernalia around 50 bags of heroin. Physical exam benign. Patient alert and oriented x4. He just tells me he is tired and sleeps throughout my examination. History and physical exam concerning for acute intoxication by likely opiates. Less likely alcohol intoxication. Will rule out metabolic derangements. Unlikely intracranial hemorrhage, stroke, encephalitis. Plan medical clearance evaluation by care team. Differential Diagnosis Differential Diagnoses: The differential diagnosis associated with the presentation includes ( History and physical exam concerning for acute intoxication by likely opiates. Less likely alcohol intoxication. Will rule out metabolic derangements. Unlikely intracranial hemorrhage, stroke, encephalitis.) Admission/Observation Consideration of admission/observation: Escalation of care including admission/observation considered Lab Data MDM Lab Attestation statement: I reviewed the patient's lab results. 01/23/25 13:35 01/23/25 13:35 Labs: Lab Results 01/23/25 01/23/25 Range/Units 13:35 14:59 WBC 7.7 (4.8-10.8) X10*3/uL RBC 4.04 L (4.60-5.80) X10*6/uL Hgb 12.0 L (14.0-18.0) g/dl Hct 36.5 L (42.0-52.0) % MCV 90.3 (80.0-98.0) fL MCH 29.7 (27.0-33.0) pg MCHC 32.9 (31.0-36.0) g/dl RDW 13.0 (11.0-16.0) % Plt Count 244 (160-400) X10*3/uL MPV 9.8 (9.4-12.4) fL Immature Gran % (Auto) 0.4 (0.0-0.4) % Neut % (Auto) 77.6 H (45-73) % Lymph % (Auto) 13.8 L (20-40) % [place] % (Auto) 5.8 (2-11) % Eos % (Auto) 2.3 (0-4) % Baso % (Auto) 0.1 (0-2) % Lymph # (Auto) 1.1 L (1.2-4.9) X10*3/uL [place] # (Auto) 0.5 (0.1-1.2) X10*3/uL Eos # (Auto) 0.2 (0.0-0.4) X10*3/uL Baso # (Auto) 0.0 (0.0-0.2) X10*3/uL Abs Immat Gran (auto) 0.03 (0.00-0.03) X10*3/uL Absolute Neuts (auto) 6.0 (2.0-8.3) x10*3/uL Absolute Nucleated RBC 0.000 (0.0-0.012) X10*3/uL Nucleated RBC % (auto) 0.0 (0.0-0.2) /100WBC Sodium 147 H (135-145) mmol/L Potassium 4.3 (3.3-5.1) mmol/L Chloride 111 H (96-108) mmol/L Carbon Dioxide 27 (22-29) mmol/L Anion Gap 13 (12-20) BUN 24 H (9-16) mg/dL Creatinine 0.93 (0.5-1.4) mg/dL Estim Creat Clear Calc 62.7 Estimated GFR > 60 POC Glucose 102 (60-115) mg/dL Random Glucose 115 (60-115) mg/dL Calcium 9.0 (8.4-10.2) mg/dL Magnesium 2.3 (1.6-2.6) mg/dL Total Bilirubin 0.6 (0.0-1.0) mg/dL AST 33 (5-37) U/L ALT 65 H (0-40) U/L Alkaline Phosphatase 79 (39-117) U/L Total Protein 7.0 (6.5-8.0) g/dL Albumin 4.7 (3.5-5.0) g/dL Ethyl Alcohol < 10 mg/dL Critical Care Time Critical Care Time Critical Care Time: No Discharge Plan Discharge Clinical Impression: Opiate misuse, SDH (subdural hematoma) Patient Disposition: Home, Self-Care Instructions: Opioid Use Disorder (ED) Additional Instructions: Take your medications as prescribed. If you were prescribed antibiotics today, it is important that you take your medication to their entirety, do not skip any doses, do not finish them early. Follow-up with your primary care provider this week. Return to the emergency department with new or worsening symptoms. Such as fevers, chills, chest pain, shortness of breath, nausea, vomiting, dizziness, headache, vision changes, lethargy In case of emergency call 911 I have sent you home with Narcan Referrals: Physician,None [Primary Care Provider, Medical] Print Language: Vietnamese
[2025-01-23 13:42] LABS: MANUAL DIFF FLAG NO
[2025-01-23 13:52] LABS: Hematocrit 36.5 % (42.0-52.0); Hemoglobin 12.0 g/dl (14.0-18.0); Imm Gran Abs Auto 0.03 X10*3/uL (0.00-0.03); Imm Gran Pct Auto 0.4 % (0.0-0.4); Lymphocytes Absolute Auto 1.1 X10*3/uL (1.2-4.9); Mean Corpuscular HGB Conc 32.9 g/dl (31.0-36.0); Mean Corpuscular Hemoglobin 29.7 pg (27.0-33.0); Mean Corpuscular Volume 90.3 fL (80.0-98.0); NRBC Abs Auto 0.000 X10*3/uL (0.0-0.012); NRBC Pct Auto 0.0 /100WBC (0.0-0.2); Platelet Count 244 X10*3/uL (160-400); Red Blood Count 4.04 X10*6/uL (4.60-5.80); White Blood Count 7.7 X10*3/uL (4.8-10.8)
[2025-01-23 14:07] LABS: Alanine Aminotransferase 65 U/L (0-40); Albumin Level 4.7 g/dL (3.5-5.0); Alkaline Phosphatase 79 U/L (39-117); Anion Gap 13 (12-20); Aspartate Amino Transferase 33 U/L (5-37); Blood Urea Nitrogen 24 mg/dL (9-16); Calcium 9.0 mg/dL (8.4-10.2); Carbon Dioxide 27 mmol/L (22-29); Chloride 111 mmol/L (96-108); Creatinine Clr Calc Pharmacy 62.7; Estimated Glomerular Filt Rate > 60; Magnesium 2.3 mg/dL (1.6-2.6); Potassium 4.3 mmol/L (3.3-5.1); Sodium 147 mmol/L (135-145); Total Protein 7.0 g/dL (6.5-8.0)
[2025-01-23 15:03] LABS: Glucose, Whole Blood 102 mg/dL (60-115)
[2025-01-23] MEDS: Naloxone HCl Nasal TAKE HOME 4 MG SPRAY 8 MG NOSTRILALT (16:16)
[2025-01-23 16:39] VITALS: BP 124/68; PULSE 78; RESP 18; TEMP 36.6; O2SAT 98
== END 2025-01-23 16:41 | disposition home or self-care (01) ==
PROVIDERS: Physician Assistant; Emergency Provider Emergency Medicine
DX: F11.929 Opioid use, unspecified with intoxication, unspecified (principal); R41.82 Altered mental status, unspecified; D64.9 Anemia, unspecified; S06.5XAA Traumatic subdural hemorrhage with loss of consciousness status unknown, initial encounter; X58.XXXA Exposure to other specified factors, initial encounter; Y93.9 Activity, unspecified; Y92.9 Unspecified place or not applicable; Y99.9 Unspecified external cause status
CPT/HCPCS: 36415; 70450; 80053; 80307; 82947; 83735; 85025; 99284; S9485

== ENCOUNTER → 2025-01-23 13:19 | Outpatient (BNV) | payer OTHER, SELFPAY | PROVIDERS: Emergency Provider Emergency Medicine; Visit Provider Radiology Diagnostic Radiology | DX: R41.82 Altered mental status, unspecified (principal) | CPT/HCPCS: 70450 ==

== ENCOUNTER 2025-06-03 14:18 | Emergency (ER) | payer OTHER, SELFPAY ==
[2025-06-03] MEDS: Naloxone HCl Nasal 4 MG SPRAY NOSTRILALT ×2 (14:20→14:21)
[2025-06-03 14:27] VITALS: BP 92/46; PULSE 84; RESP 14; TEMP 36.6; O2SAT 94; BMI 32.6
--- NOTE | 2025-06-03 14:31 | ED.OVERDOSE ---
HPI - Overdose General Chief Complaint: Overdose Stated Complaint: in and out of it Time Seen by Provider: 06/03/25 14:31 Source: patient Mode of arrival: wheelchair Limitations: no limitations and altered mental status History of Present Illness ED Provider: DR. Jose HPI Narrative: 65-year-old male history of heroin use disorder was dropped off by unknown person into our emergency department for being unable to wake up, patient was given 2 nasal Narcan at the triage patient only respond to painful stimuli patient was moved to room 4, was able to awake the patient and patient admitted to using heroin by sniffing never used IV drugs, no SI, no HI, no hallucination. Related Data Allergies Allergy/AdvReac Type Severity Reaction Status Date / Time No Known Allergies (No Known Allergy Verified 06/03/25 14:29 Allergies*) Review of Systems Review of Systems: All other systems are reviewed and are negative Constitutional: Reports as per HPI and Reports no additional constitutional complaints Eyes: Reports as per HPI and Reports no additional eye complaints Reports system reviewed and no additional complaints, except as documented Cardiovascular: Reports as per HPI and Reports no additional cardiovascular complaints Respiratory: Reports as per HPI and Reports no additional respiratory complaints Gastrointestinal: Reports as per HPI and Reports no additional gastrointestinal complaints Genitourinary: Reports no additional female genitourinary complaints Musculoskeletal: Reports no additional musculoskeletal complaints Skin/Breast: Reports system reviewed and no additional complaints, except as docu Psychiatric: Reports no additional psychiatric complaints Endocrine: Reports no additional endocrine complaints Hematologic/Lymphatic: Reports no additional hematologic/lymphatic complaints Allergic/Immunologic: Reports no additional allergic/immunologic complaints Reports system reviewed and no additional complaints, except as documented and Reports Abnormal speech present [facility] Social History Social History Use of substances other than those prescribed or required for medical reasons: Yes Substance Use Type: Heroin Advance Directives: No Advance Directives Information Provided: No Do you have a plan to hurt others: No Plan Physical Exam Vital Signs: Vital Signs: Last Vital Signs Temp 101.5 F H 06/04/25 03:33 Pulse 84 06/04/25 03:33 Resp 18 06/04/25 03:33 BP 155/95 H 06/04/25 03:33 Pulse Ox 97 06/04/25 03:33 O2 Del Method Room Air 06/04/25 03:33 BMI result Body Mass Index 32.6 Vital signs have been reviewed and appear to be correct. Blood pressure elevated. Heart rate normal. Respiratory rate normal. Temperature normal. Oxygen saturation normal. Appearance: Alert. Oriented X3. No acute distress. Head: Normal external exam. Normocephalic. Atraumatic. No Elkins signs noted. No raccoon eyes noted Eyes: Pinpoint pupil,EOMI. Conjunctiva and sclera normal. Eyelids normal. ENT: TM's Normal. Pharynx normal. Uvula midline. Moist mucous membranes. No trismus noted. No drooling noted. No muffled voice noted. Neck: Normal inspection. Neck supple. FROM. No adenopathy. Thyroid Normal. No meningeal signs. No neck mass noted. CVS: Normal heart rate and rhythm. Heart sound normal. No murmurs noted. Pulses normal throughout. Respiratory: No respiratory distress. Painless inspiration. Breath sounds normal. No wheezes/rales/rhonchi noted. Chest nontender. No accessory muscle usage noted or decreased air movement noted. Abdomen: Soft and nontender. Bowel sounds normal in all 4 quadrants. No distention noted. No organomegaly noted. No visible injury noted. Back: No CVA tenderness. Full range of motion noted. Skin: Skin warm and dry. Normal skin color. Normal skin turgor. No rashes/lesions/lacerations noted. Extremities: No lower extremity edema. Extremities exhibit normal range of motion. Extremities nontender. Neuro: Oriented X 3. Cranial nerve exam: II-XII are grossly intact No motor deficit. No sensory deficit. Reflexes normal. Course Reevaluation(s) Reevaluation #1: was dropped off by unknown person unresponsive, patient responded to Narcan initially, patient remained awake, no SI, no HI, no intentional overdose, no hallucination. Narcan 8 mg order to take home. Recovery consult. Signed out to Dr. salazar Time: 16:00 Reevaluation #2: Patient becoming extremely belligerent, aggressive towards staff. States he does not want to take Motrin for his fever which is up to 101.5. Clinically he is likely having influenza which is very prominent in the community right now. I tried to explain this to him however, he continues to curse at me. He has Narcan ordered for home. I offered him further treatment for what is likely influenza versus other viral illness. He is refusing. He appears capable of making decisions at this time. Clear speech, steady gait. Refusing any reatment I offer, including motrin for fever. Time: 03:13 Medications Administered Discontinued Medications Generic Name Dose Route Start Last Admin Trade Name Lis PRN Reason Stop Dose Admin Acetaminophen 975 mg 06/03/25 21:19 06/03/25 21:42 Acetaminophen 325 Mg Tablet PO 06/03/25 21:20 975 mg ONCE ONE Administration Clonidine HCl 0.1 mg 06/03/25 21:19 06/03/25 21:38 Clonidine Hcl 0.1 Mg Tablet PO 06/03/25 21:20 0.1 mg ONCE ONE Administration Protocol Hydroxyzine HCl 50 mg 06/03/25 21:19 06/03/25 21:42 Hydroxyzine Hcl 50 Mg Tablet PO 06/03/25 21:20 50 mg ONCE ONE Administration Ibuprofen 600 mg 06/04/25 02:57 06/04/25 03:13 Ibuprofen 600 Mg Tablet PO 06/04/25 02:58 Not Given ONCE ONE Naloxone HCl 4 mg 06/03/25 14:31 06/03/25 14:20 Naloxone Hcl Nasal 4 Mg [place] NOSTRILALT 06/03/25 14:32 4 mg ONCE ONE Administration Naloxone HCl 4 mg 06/03/25 14:32 06/03/25 14:21 Naloxone Hcl Nasal 4 Mg [place] NOSTRILALT 06/03/25 14:33 4 mg ONCE ONE Administration Naloxone HCl 8 mg 06/03/25 15:39 06/04/25 03:24 Naloxone Hcl Nasal Take Home 4 Mg [place] NOSTRILALT 06/03/25 15:40 Not Given ONCE ONE Medical Decision Making Differential Diagnosis Differential Diagnoses: The differential diagnosis associated with the presentation includes ( SI, HI, intentional overdose, electrolyte derangement, severe anemia.) Admission/Observation Consideration of admission/observation: Escalation of care including admission/observation considered Lab Data 06/03/25 15:34 06/03/25 15:34 Labs: Lab Results 06/03/25 06/03/25 Range/Units 15:34 16:07 WBC 9.2 (4.8-10.8) X10*3/uL RBC 5.01 D (4.60-5.80) X10*6/uL Hgb 14.9 D (14.0-18.0) g/dl Hct 45.1 D (42.0-52.0) % MCV 90.0 (80.0-98.0) fL MCH 29.7 (27.0-33.0) pg MCHC 33.0 (31.0-36.0) g/dl RDW 12.2 (11.0-16.0) % Plt Count 266 (160-400) X10*3/uL MPV 9.4 (9.4-12.4) fL Immature Gran % (Auto) 0.3 (0.0-0.4) % Neut % (Auto) 83.6 H (45-73) % Lymph % (Auto) 9.6 L (20-40) % [place] % (Auto) 5.1 (2-11) % Eos % (Auto) 1.2 (0-4) % Baso % (Auto) 0.2 (0-2) % Lymph # (Auto) 0.9 L (1.2-4.9) X10*3/uL [place] # (Auto) 0.5 (0.1-1.2) X10*3/uL Eos # (Auto) 0.1 (0.0-0.4) X10*3/uL Baso # (Auto) 0.0 (0.0-0.2) X10*3/uL Abs Immat Gran (auto) 0.03 (0.00-0.03) X10*3/uL Absolute Neuts (auto) 7.7 (2.0-8.3) x10*3/uL Absolute Nucleated RBC 0.000 (0.0-0.012) X10*3/uL Nucleated RBC % (auto) 0.0 (0.0-0.2) /100WBC Sodium 142 (135-145) mmol/L Potassium 3.8 (3.3-5.1) mmol/L Chloride 105 (96-108) mmol/L Carbon Dioxide 26 (22-29) mmol/L Anion Gap 15 (12-20) BUN 18 H (9-16) mg/dL Creatinine 0.99 (0.5-1.4) mg/dL Estim Creat Clear Calc 89.4 Estimated GFR > 60 Random Glucose 130 H (60-115) mg/dL Calcium 9.5 (8.4-10.2) mg/dL Magnesium 2.3 (1.6-2.6) mg/dL Total Bilirubin 0.8 (0.0-1.0) mg/dL AST 28 (5-37) U/L ALT 38 (0-40) U/L Alkaline Phosphatase 94 (39-117) U/L Total Protein 7.8 (6.5-8.0) g/dL Albumin 5.1 H (3.5-5.0) g/dL Urine Opiates Screen POSITIVE H (Not Detect) Ur Buprenorphine Scrn Not Detected (Not Detect) ng/mL Ur Oxycodone Screen Not Detected (Not Detect) ng/mL Urine Methadone Screen Positive H (Not Detect) ng/mL Urine Fentanyl Screen POSITIVE H (Not Detect) Ur Barbiturates Screen Not Detected (Not Detect) Ur Phencyclidine Scrn Not Detected (Not Detect) Ur Amphetamines Screen Not Detected (Not Detect) U Benzodiazepines Scrn Not Detected (Not Detect) Urine Cocaine Screen POSITIVE H (Not Detect) U Marijuana (THC) Screen Not Detected (Not Detect) Ethyl Alcohol < 10 mg/dL Discharge Plan Discharge Clinical Impression: Accidental overdose, Substance abuse, Flu-like symptoms Patient Disposition: Home, Self-Care Instructions: Influenza (ED) Additional Instructions: Keep your mask on if you have to go into public for any reason while you are ill. Use Tylenol and Motrin around the clock for fever and body aches. Return to the emergency department with any new or worsening symptoms including: Worsening shortness of breath, continued fevers despite medications, inability to tolerate food or drink. Call 911 with any medical emergency. Opiate use disorder You were seen in our Emergency Department today for treatment of opiate use disorder. You may have been dosed with medication for opiate use disorder (MOUD) in the form of suboxone or methadone. You may experience feeling some withdrawal symptoms and this is normal. The? dose in the Emergency Department is a starting dose and meant to be titrated up once you follow up with a clinic. Please do not feel discouraged, it is a process. The nurse has reviewed with you where to follow up and what information to bring with you, to continue treatment. You also may have been given naloxone (narcan) to take home with you. This medication is used to potentially treat opiate overdose. If you decide you want to stop or cut down on how much you?re using, you can call or walk into our outpatient Addiction Treatment office: [facility] (M-F 9am-5p) [address], [address] [phone] You may have been provided with safer injection?items, please take time to take care of YOU and your health. Use new supplies whenever possible to lessen the chances of infections and other illnesses.? ?If you need more supplies, please go [facility],? [address] [place] [address] OR you can call or text to coordinate delivery of safer supplies. You were also provided a list of several treatment providers in the area.? If you experience any worsening symptoms you cannot control please return to the ED or call 911. Please follow up at your next appointment. Things to look out for are fevers, chest pain, shortness of breath, severe pain, dizziness, fainting or any other concerns. Interventions: ED Discharge Assessment Last Done: 06/04/25 03:33 Discharge Date/Time: 06/04/25 03:34 Print Language: Spanish
[2025-06-03 15:40] LABS: MANUAL DIFF FLAG NO
[2025-06-03 15:44] LABS: Hematocrit 45.1 % (42.0-52.0); Hemoglobin 14.9 g/dl (14.0-18.0); Imm Gran Abs Auto 0.03 X10*3/uL (0.00-0.03); Imm Gran Pct Auto 0.3 % (0.0-0.4); Lymphocytes Absolute Auto 0.9 X10*3/uL (1.2-4.9); Mean Corpuscular HGB Conc 33.0 g/dl (31.0-36.0); Mean Corpuscular Hemoglobin 29.7 pg (27.0-33.0); Mean Corpuscular Volume 90.0 fL (80.0-98.0); NRBC Abs Auto 0.000 X10*3/uL (0.0-0.012); NRBC Pct Auto 0.0 /100WBC (0.0-0.2); Platelet Count 266 X10*3/uL (160-400); Red Blood Count 5.01 X10*6/uL (4.60-5.80); White Blood Count 9.2 X10*3/uL (4.8-10.8)
--- OUTSIDE RECORDS SUMMARY | 2025-06-03 15:48 | XMS_ITS | Clinical Summary ---
Author Organization [facility] [address] Address [address] [place] [address] Care Team Providers Care Director Embalmer Name Role Phone Unavailable Primary Care Provider [...] [phone] 01/15/2022 3:29 PM EDT Temperature 36.1 C (96.9 F) 01/15/2022 3:29 PM EDT Respiratory Rate - - Oxygen Saturation 98% [...] adult (Td q 10,TDAP once) 06/30/2020 011 Influenza vaccine 01/08/2025 Covid-19 vaccine series (1 - 2024- season) 2025 RSV Immunization (1 - 1-dose 75+ series) 2035 Meningococcal B Vaccine Aged Out No l onger eligible based on patient's age to complete this topic Meningococcal Vaccine Aged Out No calderon julio eligible based on patient's age to complete this topic
--- OUTSIDE RECORDS SUMMARY | 2025-06-03 15:48 | XMS_ITS | Clinical Summary ---
Author Organization [facility] Address [address] [facility] [address] [place] [id number] Phone Care Team Providers Care Drywall Sander Name Role Phone Steve Cline MD Primary Care Pro vider Allergies No known active allergies Medications No known medications Active Problems No known active problems Social History Tobacco Use Types Packs/Day Years Used Date Smoking Tobacco: Never Smokeless Tobacco: Never Education Answer Date Recorded Are you interested in more education? Not on christiano e 10/04/2022 Are you concerned about learning? Not on file 10/04/2022 No 10/04/2022 No 10/04/2022 Digital Access Answer Date Recorded No 11/05/2022 No 11/05/2022 No 11/05/2022 Reliable internet access at home? Not on file 11/05/2022 Device with a working camera? Not on file Sex and Gender Information Value Date Recorded Sex Assigned at Not on file Legal Sex Male 8:08 PM EST Gender Identity Not on file Sexual Orientation Not on file Last Filed Vital Signs Vital Sign Reading Time Taken Comments Blood Pressure 149/93 01/20/2021 4:42 PM EDT Pulse 75 01/20/2021 4:42 PM EDT Temperature 37 C (98.6 F) 01/20/2021 4:42 PM EDT Respiratory Rate 20 01/20/2021 4:42 PM EDT Oxygen Saturation 95% 01/20/2021 4:42 PM EDT Inhaled Oxygen Concentration - - Weight - - Height - - Body Mass Index - - Plan of Treatment Health Maintenance Due Date Last Done Comments Adult Td,Tdap Booster 1960 DEPRESSION SCREENING 1972 HEPATITIS C SCREENING 1978 HIV ONE-TIME SCREENING (18-6 5 YEARS) 1978 COLOGUARD 2005 COLONOSCOPY 2005 COLORECTAL CANCER SCREENING 2005 FIT TEST 2005 FOBT 2005 SIGMOIDOSCOPY 2005 VIRTUAL COLONOSCOPY 2005 PNEUMOCOCCAL VACCINES (50+ y ears) (1 of 1 - PCV) 2010 ZOSTER VACCINES (1 of 2) 2010 LIPID PANEL 01/04/2020 01/03/2015 INFLUENZA VACCINE (#1) 2025 COVID-19 VACCINE (1 - 2024-2 6 season) 2025 RSV VACCINE (1 - 1-dose 75+ series) 2035 SMOKING STATUS SCREENING (On ce After 26 Yrs) Completed 01/20/2021 HEPATITIS A VACCINES Aged Out No long er eligible based on patient's age to complete this topic HIB VACCINES Aged Out No longer eligi ble based on patient's age to complete this topic MENINGOCOCCAL VACCINES (ACWY) Aged Out No longer eligible based on patient's age to complete this topic MENINGOCOCCAL VACCINES (B) Aged Out N o longer eligible based on patient's age to complete this topic Medical Devices Not on file Insurance [facility] [place] [address] [employer] Member Subscriber Plan / Payer (Ef fective for All Dates) Name:DavidMusa bonilla Relation to Subscriber:Self Name:Musa Hernandez Payer ID:[id number] (NAIC) Group ID:Not on file Type:HMO Address: [address] [place] [id number] [facility] Member Subscriber Plan / Payer (Ef fective for All Dates) Name:Musa Hernandez Relation to Subscriber:Self Name:DvaidMusa bonilla Payer ID:[id number] (NAIC) Group ID:Not on file Type:HMO Address: [address] [facility] Member Subscriber Plan / Payer (Ef fective for All Dates) Name:David Musa Ronny Relation to Subscriber:Self Name:David Musa Ronny Payer ID:[id number] (NAIC) Group ID:Not on file Type:HMO Address: [address] Member Subscriber Plan / Payer (Ef fective for All Dates) Name:Musa Hernandez Relation to Subscriber:Self Name:Musa Hernandez Payer ID:[id number] (NAIC) Group ID:Not on file Type:HMO Address: [address] [place] [address] Member Subscriber Plan / Payer (Ef fective for All Dates) Name:Musa Hernandez Relation to Subscriber:Self Name:Musa Hernandez Payer ID:[id number] (NAIC) Group ID:Not on file Type:O Address: [address] [facility]WORK [facility] Care Teams Drywall Sander Relationship Specialty Start Date End Date Steve Cline MD [address] [place] [address] PCP - General 12/08/13 Additional Source Comments The information contained in this document represents components of the legal health record. It is not the complete legal health record.[facility]
--- OUTSIDE RECORDS SUMMARY | 2025-06-03 15:48 | XMS_ITS ---
Author Name [facility] Organization Unknown Results Test Name/Text Value Interpretation Date Range Source Hgb Bld-mCnc 12.2 g/dL Below low normal 11/03/2024 13 - 17.7 HHCCT PMV Bld Auto 9.3 fL 11/03/2024 7.5 - 12.5 HHCCT WBC num Bld Auto 7.2 Thou/uL 11/03/2024 4 - 11 HHCCT MCH RBC Qn Auto 29.7 pg 11/03/2024 27 - [address] Hct VFr Bld Auto 37.2 % Below low normal 11/03/2024 39 - 54 HHCCT MCHC RBC Auto-mCnc 32.8 g/dL 11/03/2024 30 - 36 HHCCT RBC num Bld Auto 4.11 Mil/uL Below low normal 11/03/2024 4.5 - 6.2 HHCCT MCV RBC Auto 91.0 fL 11/03/2024 80 - 100 HHCCT RDW RBC Auto-Rto 11.9 % 11/03/2024 11.5 - 14.5 HHCCT Platelet num Bld Auto 317.0 Thou/uL 11/03/2024 150 - 450 HHCCT Urate SerPl-mCnc 5.0 mg/dL 11/02/2024 4 - 8 HH CCT Phosphate SerPl-mCnc 3.2 mg/dL 11/02/2024 2.7 - 4. 5 HHCCT Calcium SerPl-mCnc 9.0 mg/dL 11/02/2024 8.7 - 10.5 HHCCT BUN/Creat SerPl 24.0 Ratio 11/02/2024 10 - 25 HH CCT BUN SerPl-mCnc 19.0 mg/dL 11/02/2024 8 - [address] Sodium SerPl-sCnc 138.0 mmol/L 11/02/2024 136 - 14 5 HHCCT GFR/BSA.pred SerPlBld [id number] >90.0 11/02/2024 59 - HHCCT Chloride SerPl-sCnc 103.0 mmol/L 11/02/2024 98 - 1 07 HHCCT Anion Gap Bld-sCnc 12.0 11/02/2024 7 - 17 HHCCT Potassium SerPl-sCnc 4.0 mmol/L 11/02/2024 3.4 - 5 .3 HHCCT CO2 SerPl-sCnc 23.0 mmol/L 11/02/2024 22 - 33 HH CCT Glucose SerPl-mCnc 120.0 mg/dL Above high normal 11/02/2024 65 - 99 HHCCT Creat SerPl-mCnc 0.8 mg/dL 11/02/2024 0.5 - 1.3 HH CCT Magnesium SerPl-mCnc 1.9 mg/dL 11/02/2024 1.6 - 2. 7 HHCCT PMV Bld Auto 9.7 fL 11/02/2024 7.5 - 12.5 HHCCT WBC num Bld Auto 8.8 Thou/uL 11/02/2024 4 - 11 HHCCT MCH RBC Qn Auto 29.0 pg 11/02/2024 27 - [address] RBC num Bld Auto 4.21 Mil/uL Below low normal 11/02/2024 4.5 - 6.2 HHCCT Hct VFr Bld Auto 37.8 % Below low normal 11/02/2024 39 - 54 HHCCT Hgb Bld-mCnc 12.2 g/dL Below low normal 11/02/2024 13 - 17.7 HHCCT MCV RBC Auto 90.0 fL 11/02/2024 80 - 100 HHCCT Platelet num Bld Auto 329.0 Thou/uL 11/02/2024 150 - 450 HHCCT MCHC RBC Auto-mCnc 32.3 g/dL 11/02/2024 30 - 36 HHCCT RDW RBC Auto-Rto 11.9 % 11/02/2024 11.5 - 14.5 HHCCT ESR Bld Qn 40.0 MM/HR Above high normal 11/01/2024 - 20 HHCCT CRP SerPl-mCnc 2.5 mg/dL Above high normal 11/01/2024 0 - 0. 49 HHCCT BUN/Creat SerPl 20.0 Ratio 11/01/2024 10 - 25 HH CCT Sodium SerPl-sCnc 140.0 mmol/L 11/01/2024 136 - 14 5 HHCCT GFR/BSA.pred SerPlBld [id number] >90.0 11/01/2024 59 - HHCCT Creat SerPl-mCnc 0.8 mg/dL 11/01/2024 0.5 - 1.3 HH CCT Potassium SerPl-sCnc 4.2 mmol/L 11/01/2024 3.4 - 5 .3 HHCCT Chloride SerPl-sCnc 103.0 mmol/L 11/01/2024 98 - 1 07 HHCCT Calcium SerPl-mCnc 9.1 mg/dL 11/01/2024 8.7 - 10.5 HHCCT Anion Gap Bld-sCnc 12.0 11/01/2024 7 - 17 HHCCT Glucose SerPl-mCnc 127.0 mg/dL Above high normal 11/01/2024 65 - 99 HHCCT BUN SerPl-mCnc 16.0 mg/dL 11/01/2024 8 - [address] CO2 SerPl-sCnc 25.0 mmol/L 11/01/2024 22 - 33 HH CCT Eosinophil/leuk NFr Bld Auto 4.1 % 11/01/2024 HHCCT Basophils num Bld Auto 0.02 Thou/uL 11/01/2024 0 - 0.2 HHCCT MCV RBC Auto 89.0 fL 11/01/2024 80 - 100 HHCCT Eosinophil num Bld Auto 0.34 Thou/uL 11/01/2024 0 - 0.7 HHCCT Hgb Bld-mCnc 11.6 g/dL Below low normal 11/01/2024 13 - 17.7 HHCCT RDW RBC Auto-Rto 11.9 % 11/01/2024 11.5 - 14.5 HHCCT Basophils/leuk NFr Bld Auto 0.2 % 11/01/2024 HHCCT MCHC RBC Auto-mCnc 32.2 g/dL 11/01/2024 30 - 36 HHCCT MCH RBC Qn Auto 28.8 pg 11/01/2024 27 - [address] RBC num Bld Auto 4.03 Mil/uL Below low normal 11/01/2024 4.5 - 6.2 HHCCT Monocytes/leuk NFr Bld Auto 5.6 % 11/01/2024 HHCCT PMV Bld Auto 9.5 fL 11/01/2024 7.5 - 12.5 HHCCT WBC num Bld Auto 8.4 Thou/uL 11/01/2024 4 - 11 HHCCT Platelet num Bld Auto 292.0 Thou/uL 11/01/2024 150 - 450 HHCCT Neutrophils/leuk NFr Bld Auto 73.1 % 11/01/2024 HHCCT Lymphocytes num Bld Auto 1.39 Thou/uL Below low normal 11/01/2024 1.5 - 4.5 HHCCT Hct VFr Bld Auto 36.0 % Below low normal 11/01/2024 39 - 54 HHCCT Monocytes num Bld Auto 0.47 Thou/uL 11/01/2024 0.2 - 1.5 HHCCT Neutrophils num Bld Auto 6.1 Thou/uL 11/01/2024 2 - 7.5 HHCCT Imm Granulocytes num Bld Auto 0.03 Thou/uL 11/01/2024 0 - 0.1 HHCCT Lymphocytes/leuk NFr Bld Auto 16.6 % 11/01/2024 HHCCT Imm Granulocytes/leuk NFr Bld Auto 0.4 % 11/01/2024 HHCCT Ferritin SerPl-mCnc 182.0 ug/L 10/31/2024 30 - 400 HHCCT Vit B12 SerPl-mCnc 306.0 pg/mL 10/31/2024 243 - 89 4 HHCCT Iron SerPl-mCnc 28.0 ug/dL Below low normal 10/31/2024 53 - 167 HHCCT TIBC SerPl-mCnc 245.0 ug/dL 10/31/2024 100 - 400 H HCCT Iron Satn MFr SerPl 11.0 % Below low normal 10/31/2024 20 - 50 HHCCT UIBC SerPl-mCnc 217.0 ug/dL 10/31/2024 112 - 346 H HCCT ESR Bld Qn 25.0 MM/HR Above high normal 10/31/2024 - 20 HHCCT CRP SerPl-mCnc 2.6 mg/dL Above high normal 10/31/2024 0 - 0. 49 HHCCT BUN/Creat SerPl 21.0 Ratio 10/31/2024 10 - 25 HH CCT Potassium SerPl-sCnc 4.0 mmol/L 10/31/2024 3.4 - 5 .3 HHCCT Anion Gap Bld-sCnc 10.0 10/31/2024 7 - 17 HHCCT GFR/BSA.pred SerPlBld [id number] 84.0 10/31/2024 59 - HHCCT CO2 SerPl-sCnc 25.0 mmol/L 10/31/2024 22 - 33 HH CCT Calcium SerPl-mCnc 8.7 mg/dL 10/31/2024 8.7 - 10.5 HHCCT Glucose SerPl-mCnc 104.0 mg/dL Above high normal 10/31/2024 65 - 99 HHCCT Sodium SerPl-sCnc 142.0 mmol/L 10/31/2024 136 - 14 5 HHCCT Creat SerPl-mCnc 1.0 mg/dL 10/31/2024 0.5 - 1.3 HH CCT BUN SerPl-mCnc 21.0 mg/dL 10/31/2024 8 - [address] Chloride SerPl-sCnc 107.0 mmol/L 10/31/2024 98 - 1 07 HHCCT Lymphocytes num Bld Auto 2.23 Thou/uL 10/31/2024 1.5 - 4.5 HHCCT WBC num Bld Auto 8.2 Thou/uL 10/31/2024 4 - 11 HHCCT Basophils/leuk NFr Bld Auto 0.1 % 10/31/2024 HHCCT MCH RBC Qn Auto 30.2 pg 10/31/2024 27 - [address] Imm Granulocytes num Bld Auto 0.01 Thou/uL 10/31/2024 0 - 0.1 HHCCT Hgb Bld-mCnc 10.4 g/dL Below low normal 10/31/2024 13 - 17.7 HHCCT Neutrophils num Bld Auto 5.18 Thou/uL 10/31/2024 2 - 7.5 HHCCT Neutrophils/leuk NFr Bld Auto 63.1 % 10/31/2024 HHCCT Basophils num Bld Auto 0.01 Thou/uL 10/31/2024 0 - 0.2 HHCCT Platelet num Bld Auto 264.0 Thou/uL 10/31/2024 150 - 450 HHCCT Imm Granulocytes/leuk NFr Bld Auto 0.1 % 10/31/2024 HHCCT Lymphocytes/leuk NFr Bld Auto 27.2 % 10/31/2024 HHCCT Hct VFr Bld Auto 32.3 % Below low normal 10/31/2024 39 - 54 HHCCT MCV RBC Auto 94.0 fL 10/31/2024 80 - 100 HHCCT MCHC RBC Auto-mCnc 32.2 g/dL 10/31/2024 30 - 36 HHCCT Eosinophil/leuk NFr Bld Auto 2.7 % 10/31/2024 HHCCT RDW RBC Auto-Rto 12.4 % 10/31/2024 11.5 - 14.5 HHCCT RBC num Bld Auto 3.44 Mil/uL Below low normal 10/31/2024 4.5 - 6.2 HHCCT Monocytes num Bld Auto 0.56 Thou/uL 10/31/2024 0.2 - 1.5 HHCCT PMV Bld Auto 9.4 fL 10/31/2024 7.5 - 12.5 HHCCT Eosinophil num Bld Auto 0.22 Thou/uL 10/31/2024 0 - 0.7 HHCCT Monocytes/leuk NFr Bld Auto 6.8 % 10/31/2024 HHCCT History of Medication Use Medication Directions Dispensed Refills Start Date End Date Stat us lisinopril (PRINIVIL,ZeSTRIL) 10 MG tablet Take 1 tablet (10 mg total) by mouth daily. active methadone (DOLOPHINE) 10 MG/ML concentrated solution Take 3 mL (30 mg total) by mouth daily. Max Daily Amount: 30 mg active Problems Problem Status Onset Date Problem Type Date of Resoluti on Source Right knee pain active 2024-10-31 ProblemAct [facility] Chronic subdural hematoma active 2024-10-31 ProblemAct H[facility]CT Primary hypertension active 2024-10-31 ProblemAct [facility] Subdural hematoma active 2024-10-31 ProblemAct H[facility]CT Anemia active 2024-10-31 ProblemAct H[facility] Opioid abuse active 2024-10-31 ProblemAct HHCCT Encounters Encounter Type Encounter Reason Primary Diagnosis Location Date Inpatient Traumatic subdural hemorrhage with loss of consciousness status unknown, initial encounter Traumatic subdural hemorrhage with loss of consciousness status unknown, initial encounter [facility] 10/31/2024 Care Team Organization Name Specialty Phone Email Start Date End Da te [facility] Primary Care 10/31/2024 [facility] 10/31/2024 11/29/2024 [facility] 10/31/2024
--- OUTSIDE RECORDS SUMMARY | 2025-06-03 15:48 | XMS_ITS | Clinical Summary ---
Author Organization [facility] Address [address] [place] [address] Care Team Providers Care Purchase Request Editor Name Role Phone [facility] Primary Care Provider Allergies No known active allergies Medications lisinopril (PRINIVIL,ZeSTRIL ) 10 MG tablet Take 1 tablet (10 mg total) by mouth daily. Active methadone (DOLOPHINE) 10 MG/ML concentrated solutionIndicatio ns:Opioid Dependence Take 3 mL (30 mg total) by mouth daily. Max Daily Amount: 30 mg Active Active Problems Problem Noted Date Diagnosed Date Subdural hematoma 10/31/2024 Primary hypertension 10/31/2024 Opioid abuse 10/31/2024 Anemia 10/31/2024 Right knee pain 10/31/2024 Chronic subdural hematoma 10/31/2024 Social History Tobacco Use Types Packs/Day Years Used Date Smoking Tobacco: Never Smokeless Tobacco: Never Tobacco Cessation:Counseling Given: Not Answered [facility] Utilities Answer Date Recorded In the past 12 months has [employer], gas, oil, or water [employer] threatened to shut off services in your [...] any time in the past 12 [facility], were you homeless or living in a fdc (including now)? No 10/31/2024 Sex and Gender Information Value Date Recorded Sex Assigned at Male 10/31/2024 3:28 AM EDT Legal Sex Male 11:13 PM EDT Gender Identity Male 10/31/2024 3:28 AM EDT Sexual Orientation Heterosexual (straight) 10/31 3:28 AM EDT Last Filed Vital Signs Vital Sign Reading Time Taken Comments Blood Pressure 115/82 11/04/2024 8:14 AM EDT Pulse 57 11/04/2024 8:14 AM EDT Temperature 36.6 C (97.8 F) 11/04/2024 8:14 AM EDT Respiratory Rate 18 11/04/2024 8:14 AM EDT Oxygen Saturation 98% 11/04/2024 8:14 AM EDT Inhaled Oxygen Concentration - - Weight 91.6 kg (201 lb 15.1 oz) 10/31/2024 1:01 PM EDT Height 180.3 cm (5' 11 ) 10/31/2024 1:01 PM EDT Body Mass Index 28.17 10/31/2024 1:01 PM EDT Plan of Treatment Health Maintenance Due Date Last Done Comments Advance Care Planning 1960 Hepatitis C Virus Screening 1960 HIV Screening 1973 DTaP/Tdap/Td Vaccines (1 - Tdap) 1979 Colonoscopy 2005 Pneumococcal Vaccines 50+ (1 of 1 - PCV) 2010 RSV Vaccine 50 years and old er and Patients (1 - Risk 50-74 years 1-dose series) 2010 Zoster (Shingles) Vaccine (1 of 2) 2010 Influenza Vaccine 01/08/2025 COVID-19 Vaccine (1 - 2024-2 6 season) 2025 Hepatitis B Vaccines Aged Out No long er eligible based on patient's age to complete this topic Insurance [facility] Advance Directives * Full Code (Latest Code Status on File) Date Activated Date Inactivated Comments 10/31/2024 7:10 AM Care Teams Purchase Request Editor Relationship Specialty Start Date End Date [facility] [address] [place] [address] PCP - General 10/31/24
[2025-06-03 15:55] LABS: Alanine Aminotransferase 38 U/L (0-40); Albumin Level 5.1 g/dL (3.5-5.0); Alkaline Phosphatase 94 U/L (39-117); Anion Gap 15 (12-20); Aspartate Amino Transferase 28 U/L (5-37); Blood Urea Nitrogen 18 mg/dL (9-16); Calcium 9.5 mg/dL (8.4-10.2); Carbon Dioxide 26 mmol/L (22-29); Chloride 105 mmol/L (96-108); Creatinine Clr Calc Pharmacy 89.4; Estimated Glomerular Filt Rate > 60; Magnesium 2.3 mg/dL (1.6-2.6); Potassium 3.8 mmol/L (3.3-5.1); Sodium 142 mmol/L (135-145); Total Protein 7.8 g/dL (6.5-8.0)
[2025-06-03 16:24] LABS: Cannabinoid Screen Urine Not Detected (Not Detect)
[2025-06-03 16:40] VITALS: BP 112/68; PULSE 68; RESP 14; TEMP 37.2; O2SAT 92
--- NOTE | 2025-06-03 19:32 | PC.NURSE ---
assumed care of pt, pt calm and cooperative in bed. no complaints at this time. pt respirations even and unlabored.
--- NOTE | 2025-06-03 21:00 | PC.NURSE ---
pt reports withdrawal symptoms, states he feels tremors, headache, nausea and anxiety. Provider advised, awaiting new orders.
[2025-06-03 21:38] VITALS: BP 152/96
[2025-06-04 02:53] VITALS: BP 155/95; PULSE 84; RESP 18; TEMP 38.6; O2SAT 97
--- NOTE | 2025-06-04 03:31 | PC.NURSE ---
pt agitated, using profanity towards staff. Pt offered Motrin due to an elevated temp. pt refused.
[2025-06-04 03:33] VITALS: BP 155/95; PULSE 84; RESP 18; TEMP 38.6; O2SAT 97
== END 2025-06-04 03:34 | disposition home or self-care (01) ==
PROVIDERS: Physician Assistant Medical; Emergency Provider Emergency Medicine
DX: F11.129 Opioid abuse with intoxication, unspecified (principal); F14.10 Cocaine abuse, uncomplicated; T40.1X1A Poisoning by heroin, accidental (unintentional), initial encounter; Y92.9 Unspecified place or not applicable; R41.82 Altered mental status, unspecified; R03.0 Elevated blood-pressure reading, without diagnosis of hypertension; Z51.81 Encounter for therapeutic drug level monitoring; Z79.899 Other long term (current) drug therapy
CPT/HCPCS: 36415; 80053; 80307; 83735; 85025; 99285; S9485